=== PATIENT | male | born 1940 | race Caucasian/White ===

== ENCOUNTER 2017-06-18 13:35 | Inpatient (IN) | payer OTHER ==
[2017-06-18 13:52] VITALS: BMI 23.3
--- NOTE | 2017-06-18 16:05 | PDOC ---
History of Present Illness - General Chief Complaint: Shortness of Breath Stated Complaint: PCP SENT Time Seen by Provider: 06/18/17 14:43 - History of Present Illness Initial Comments: 06/18/17 16:02 76 yo M with h/o CLL who presents with productive cough. Patient reports 3 weeks of worsening productive cough with green sputum production. Also endorses Brown. Denies fevers/chills, weight loss, N/V, CP, abdominal pain, diarrhea, constipation, diarrhea urinary complaints, lightheadedness, weakness, vertigo. Serial Chest CT Q [address] showed interval development of RUL infiltrate. Patient advised to come to ED by oncologist Dr. Clements for treatment of infiltrate. Past History - Past Medical History Allergies/Adverse Reactions: Allergies Allergy/AdvReac Type Severity Reaction Status Date / Time allopurinol AdvReac Severe Rash Verified 06/18/17 13:49 Home Medications: Ambulatory Orders Atorvastatin Calcium [Lipitor] 80 mg PO HS 09/11/12 Bimatoprost [Lumigan] 1 drop IO DAILY 06/18/17 Lisinopril/Hydrochlorothiazide [Lisinopril-Hctz 10-12.5 mg Tab] 1 each PO DAILY 06/18/17 Timolol 0.5% [Timoptic 0.5%] 1 drop OD DAILY 06/18/17 Cancer: Yes (CLL) COPD: No HTN: Yes Hypercholesterolemia: Yes - Suicide/Smoking/Psychosocial Hx Smoking Status: No Smoking History: Never smoked Have you smoked in the past 12 months: No Number of Cigarettes Smoked Daily: 0 Information on smoking cessation initiated: No Hx Alcohol Use: No Drug/Substance Use Hx: No Substance Use Type: None Hx Substance Use Treatment: No Review of Systems - Review of Systems Comments:: 06/18/17 16:03 GENERAL/CONSTITUTIONAL: No fever or chills. No weakness. HEAD, EYES, EARS, NOSE AND THROAT: No change in vision. No ear pain or discharge. No sore throat.- CARDIOVASCULAR: No chest pain or shortness of breath RESPIRATORY: + Cough, and SOB. No wheezing, or hemoptysis. GASTROINTESTINAL: No nausea, vomiting, diarrhea or constipation. GENITOURINARY: No dysuria, frequency, or change in urination. MUSCULOSKELETAL: No joint or muscle swelling or pain. No neck or back pain. SKIN: No rash NEUROLOGIC: No headache, vertigo, loss of consciousness, or change in strength/ sensation. ENDOCRINE: No increased thirst. No abnormal weight change HEMATOLOGIC/LYMPHATIC: No anemia, easy bleeding, or history of blood clots. ALLERGIC/IMMUNOLOGIC: No hives or skin allergy. *Physical Exam - Vital Signs Last Vital Signs Temp Pulse Resp BP Pulse Ox 97.6 F 79 18 130/67 97 06/18/17 13:50 06/18/17 13:50 06/18/17 13:50 06/18/17 13:50 06/18/17 13:50 - Physical Exam Comments: 06/18/17 16:03 GENERAL: Awake, alert, and fully oriented, in no acute distress HEAD: No signs of trauma, normocephalic, atraumatic EYES: PERRLA, EOMI, sclera anicteric, conjunctiva clear ENT: Auricles normal inspection, hearing grossly normal, nares patent, oropharynx clear without exudates. Moist mucosa NECK: Normal ROM, supple, no lymphadenopathy, JVD, or masses LUNGS: No distress, speaks full sentences, clear to auscultation bilaterally HEART: Regular rate and rhythm, normal S1 and S2, no murmurs, rubs or gallops, peripheral pulses normal and equal bilaterally. EXTREMITIES : Normal inspection, Normal range of motion, no edema. No clubbing or cyanosis. SKIN: Warm, Dry, normal turgor, no rashes or lesions noted. ED Treatment Course - LABORATORY CBC & Chemistry Diagram: 06/18/17 17:00 06/18/17 17:00 Medical Decision Making - Medical Decision Making 06/18/17 16:50 76 yo M with h/o CLL s/p chemotherapy 3 years ago who presents 3 weeks of worsening productive cough with green sputum production. Also endorses Brown. Denies fevers/chills, N/V, CP, abdominal pain, diarrhea, constipation, diarrhea urinary complaints, lightheadedness, weakness, vertigo. Patient has had multiple antibiotic treatment on ceftriaxone and z pack ( azithromycin ) x 2 within the past 6 weeks. Receives serial Chest CT Q [address] showed interval development of RUL infiltrate with air bronchrograms. There was concern for post obstructive lymphadenopathy, which is ruled out based on recent CT chest. This is concerning for staph pneumonia and possible CAP vs. HCAP. Patient advised to come to ED by oncologist for treatment of infiltrate. Patient currently hemodynamically stable with benign physical exam. Dr. Clements Oncologist ED Course: CBC, CMP, Blood Culture Answering service for Dr. Clements. Spoke to Dr. Valerio and Dr. Clements who recommend admission with ID consult. 06/18/17 17:11 Vanc/Zosyn Will admit to Dr. Valerio Med/Surg 7 west. 06/18/17 17:[address] Stallworth. Obtain sputum culture and will consult in AM. 06/18/17 17:31 WBC: 234.8 ( patient not at risk for leukostasis, WBC <400) 06/18/17 17:43 *DC/Admit/Observation/Transfer Diagnosis at time of Disposition: Pneumonia Qualifiers: Pneumonia type: due to unspecified organism Laterality: right Lung location: upper lobe of lung Qualified Code(s): J18.1 - Lobar pneumonia, unspecified organism - Discharge Dispostion Admit: Yes - Referrals Referrals: STAFF,NOT ON [Primary Care Provider] - - Patient Instructions - Post Discharge Activity
[2017-06-18] MEDS ORDERED: SODIUM CHLORIDE 500 ML IV STA (16:46)
[2017-06-18] MEDS ORDERED: PIPERACILLIN/TAZOB 4.5 GM/100 ML PRE-DOCKED IVPB ONE (17:00)
[2017-06-18 17:19] LABS: MCH 29.7 pg (25.7-33.7); MCHC 32.3 g/dl (32.0-35.9); MEAN CELL VOLUME 91.8 fl (80-96); MEAN PLT VOLUME 8.8 fl (7.5-11.1); PLATELET COUNT 206 K/MM3 (134-434); RDW 15.5 % (11.9-15.9)
[2017-06-18] MEDS ORDERED: PIPERACILLIN/TAZOB 4.5 GM 4.5 GM/100 ML BAG IVPB ONE (17:24)
[2017-06-18 17:29] LABS: WHITE BLOOD COUNT 234.8 K/mm3 (4.0-10.0)
[2017-06-18 17:56] LABS: ALBUMIN 4.4 g/dl (3.4-5.0); ANION GAP 7 (8-16); BILIRUBIN,TOTAL 0.6 mg/dL (0.2-1.0); CALCIUM 9.1 mg/dL (8.5-10.1); CO2 28 mmol/L (21-32); CREATININE 1.3 mg/dL (0.7-1.3); GLUCOSE,RANDOM 92 mg/dL (74-106); SGOT/AST 20 U/L (15-37); SGPT/ALT 32 U/L (12-78); TOT PROT 7.4 g/dl (6.4-8.2)
[2017-06-18 17:57] LABS: ALK PHOS 77 U/L (45-117)
[2017-06-18] MEDS ORDERED: VANCOMYCIN 2,000 MG in DEXTROSE 5%-WATER - 500 ML IVPB ONE (18:30)
[2017-06-18] MEDS ORDERED: ACETAMINOPHEN 325 MG TABLET (FP) PO PRN (18:34)
[2017-06-18] MEDS ORDERED: VANCOMYCIN 1,000 MG in DEXTROSE 5%-WATER - 250 ML IVPB ONE (18:37)
--- NOTE | 2017-06-18 18:41 | HP ---
CHIEF COMPLAINT: Cough with phlegm and chills PCP: Dr. Anthony (In [facility]) Oncologist: Dr. Clements HISTORY OF PRESENT ILLNESS: Patient is a 76 year old male with a PMHx of CLL, HTN, HLD who was sent over by his oncologist due to failed outpatient therapy for pneumonia. Patient states three weeks he started having a productive cough with green sputum associated with fever and chills. Patient was initially diagnosed with influenza and was given Tamiflu and an anti-histamine without improvement. Patient then reported last week he had continuous cough with green phlegm associated with shortness of breath when going up a hill but relieved with rest. He went to his PCP on Thursday (06/13/17) who took a chest x-ray which revealed a consolidation and was given a Z-pack for which he completed yesterday. Today, patient had a CT ordered by his oncologist which revealed a worsening consolidation and recommended that he goes to the ED for further work up. Patient denies any sick contacts or any recent hospitalization within the last 90 days. Patient does report receiving his flu shot this year. Patient otherwisem denies abdominal pain, dysuria, hematuria, chest pain, palpitations, vision changes, numbness, weakness, acute vision changes, rashes, diarrhea, constipation, increasing fatigue or malaise. ER course was notable for: (1) Chest X-ray revealing RUL consolidation (2) Zosyn and vancomycin given (3) Bolus of IV NS Recent Travel: Denies PAST MEDICAL HISTORY: CLL (diagnosed in 2010 with 6 sessions of chemotherapy completed January 2013), HTN, HLD PAST SURGICAL HISTORY: Denies Social History: Smoking: Debues Alcohol: Beer occasionally Drugs: Denies Family History: Non-contributory Allergies: Allopurinol Adverse Reaction (Severe, Verified 06/18/17 13:49) Rash FULL BODY MACULAR/PAPULAR HOME MEDICATIONS: Home Medications Medication Instructions Recorded Atorvastatin Calcium [Lipitor] 80 mg PO HS 09/11/12 Bimatoprost [Lumigan] 1 drop IO DAILY 06/18/17 Lisinopril/Hydrochlorothiazide 1 each PO DAILY 06/18/17 [Lisinopril-Hctz 10-12.5 mg Tab] Timolol 0.5% [Timoptic 0.5%] 1 drop OD DAILY 06/18/17 REVIEW OF SYSTEMS CONSTITUTIONAL: fever, chills Absent: diaphoresis, generalized weakness, malaise, loss of appetite, weight change HEENT: Absent: rhinorrhea, nasal congestion, throat pain, throat swelling, difficulty swallowing, mouth swelling, ear pain, eye pain, visual changes CARDIOVASCULAR: Absent: chest pain, syncope, palpitations, irregular heart rate, lightheadedness , peripheral edema RESPIRATORY: cough, shortness of breath, dyspnea with exertion Absent: orthopnea, wheezing, stridor, hemoptysis GASTROINTESTINAL: Absent: abdominal pain, abdominal distension, nausea, vomiting, diarrhea, constipation, melena, hematochezia GENITOURINARY: Absent: dysuria, frequency, urgency, hesitancy, hematuria, flank pain, genital pain MUSCULOSKELETAL: Absent: myalgia, arthralgia, joint swelling, back pain, neck pain SKIN: Absent: rash, itching, pallor HEMATOLOGIC/IMMUNOLOGIC: Absent: easy bleeding, easy bruising, lymphadenopathy, frequent infections ENDOCRINE: Absent: unexplained weight gain, unexplained weight loss, heat intolerance, cold intolerance NEUROLOGIC: Absent: headache, focal weakness or paresthesias, dizziness, unsteady gait, seizure, mental status changes, bladder or bowel incontinence PSYCHIATRIC: Absent: anxiety, depression, suicidal or homicidal ideation, hallucinations. PHYSICAL EXAMINATION Vital Signs - 24 hr 06/18/17 13:50 Temperature 97.6 F Pulse Rate 79 Respiratory 18 Rate Blood Pressure 130/67 O2 Sat by Pulse 97 Oximetry (%) GENERAL: Awake, alert, and fully oriented, in no acute distress. EYES: Pupils equal, round and reactive to light EARS, NOSE, THROAT: Oropharynx clear without exudates. Moist mucous membranes. LUNGS: Breath sounds equal, clear to auscultation bilaterally. No wheezes, and no crackles. No accessory muscle use. HEART: Regular rate and rhythm, normal S1 and S2 without murmur, rub or gallop. ABDOMEN: Soft, nontender, not distended, normoactive bowel sounds, no guarding, no rebound, no masses. No hepatomegaly or splenomegaly. EXTREMITIES: No peripheral edema of bilateral LE. Non-tender Right axillary lymph nodes NEUROLOGICAL: Cranial nerves II-XII intact. Normal speech. No facial droop Laboratory Results - last 24 hr 06/18/17 06/18/17 17:00 17:00 WBC 234.8 H* RBC 4.44 Hgb 13.2 D Hct 40.8 MCV 91.8 MCH 29.7 MCHC 32.3 RDW 15.5 Plt Count 206 D MPV 8.8 Neutrophils % No Result Required. Lymphocytes % No Result Required. Sodium 136 Potassium 4.2 Chloride 101 Carbon Dioxide 28 Anion Gap 7 L BUN 20 H Creatinine 1.3 Creat Clearance w eGFR 53.53 Random Glucose 92 Calcium 9.1 Total Bilirubin 0.6 AST 20 D ALT 32 Alkaline Phosphatase 77 D Total Protein 7.4 D Albumin 4.4 Chest X-Ray (06/18/17): Right Upper Lobe consolidation ASSESSMENT/PLAN: Patient is a 76 year old male who was sent by his oncologist for failed outpatient pneumonia therapy with Ceftriaxone and Azithromycin. Patient admitted for further monitoring and management. Right Upper Lobe Community Acquired Pneumonia -CURB65 of 1 however, patient has CLL and is immunocompromised with failed outpatient therapy and symptoms of fever, chills, night sweats. -IV antibiotics with Zosyn 3.375mg IVPB Q8H and Vancomycin 1000mg IVPB -Mycoplasma pneumoniae IgM, sputum cultures and urine antigens for Legionella ordered -Quanteferon gold ordered as patient is immunocompromised and CT revealing possible cavitation within the consolidation -Continue IV fluids with Normal Saline @83mls/hr until the morning -Follow up on blood cultures -Lactic Acid pending -ID consult placed. Spoke to Dr. Delgado and discussed case. CLL -Last treated with chemotherapy in 2012 -In March patient's WBC in the 180,000's but this month in the 220,000's. Today patient's WBC >234,000 -Chest/Abdomen/Pelvis CT done which only revealed increasing spleen size with no changes otherwise -Followed by heme/onco and consult placed -Continue to monitor CBC HTN-Controlled -Takes HCTZ/Lisinopril at home but will only resume Lisinopril -Tried calling pharmacy who report he has not filled since 2014. Patient receives medication from [facility] pharmacy. Will confirm in the morning -Continue to monitor BP HLD -Continue Lipitor 80mg daily F/E/N -On IV NS @83mls/hr -Electrolytes wnl -Sodium controlled diet Prophylaxis -High Risk. Heparin 5000 units SQ Q8H for DVT -No GI required Disposition -Full code -Will need IV antibiotics. Awaiting ID and Oncology consult Visit type - Emergency Visit Emergency Visit: Yes ED Registration Date: 06/18/17 Care time: The patient presented to the Emergency Department on the above date and was hospitalized for further evaluation of their emergent condition. - New Patient This patient is new to me today: Yes Date on this admission: 06/18/17 - Critical Care Critical Care patient: No
[2017-06-18] MEDS ORDERED: SODIUM CHLORIDE 1,000 ML IV SCH (18:45)
--- NOTE | 2017-06-18 18:46 | PN ---
Teaching Attending Note Name of Resident: Shahana Cole ATTENDING PHYSICIAN STATEMENT I saw and evaluated the patient. I reviewed the resident's note and discussed the case with the resident. I agree with the resident's findings and plan as documented. SUBJECTIVE: CC: cough , fever , chills and sputum production HPI: Mr. Kline is a pleasant gentleman with h/o CLL , HTN, and HLP who presented with fever , chills, cough and sputum production. around thankx giving he started with these sx. He was prescribed a 5 day course of tamiflu and anti-histamine , with no improvement . a week ago, he wa prescribed azithro and possibly one dose of ceftriaxone. No improvement in sx . he saw Dr. Clements in office yesterday and a CT of C/A/P was done to show a RUL infiltrate. he denies recent trave, hospitalization, diarrhea , dysuria , or rash. he denies any change in vision, weakness, numbness, or tingling. OBJECTIVE: NAd, AAox3 . MMM, no facial droop. EOMI. round equal pupils , reactive to light . CV: RRR, NO MRG Lungs: CTAB Abd: soft, NT, ND , NL BS . Liver and spleen are not palpated or percussed . ext: no edema . Lymphatic: No LAP in groins, neck, L axilla . has 3 n on tender, LAP in R axilla biggest measures around 2cm in diameter. Neuro : EOMI. round equal pupils , reactive to light . no facial droop. uvula and tongue at midline.Nl facial sensation . EOMI. strength 5/5 in upper and lower extremities proximally and distally . sensatio to light touch NL. reflexes 1+ knee jerk b/l . 2+ biceps b/l ASSESSMENT AND PLAN: Mr. Kline is a pleasant gentleman with h/o CLL , HTN, and HLP who presented with fever , chills, cough and sputum production. He was found ot have RUL PNA 1- RUL CAP : failed azithro and ceftriaxone treatment as out pt . lactic pending -due to his immuno-compromised status will treat with zosyn. Received vanco in ER. there might be a cavitation in the consolidation, so will cont vanco pending ID consult - check qunterferfaith che - chechastity legiionella/pneumococcal Ag and mycoplasma Abs. - follow blood c x - IVF till Am . - follow lactic acid ( still pending ) - follow BMP ( pending ) 2- H/o CLL: treated with chemo in 2012. WBC has been slowly increasing. on CT pelvis /abd : slight increase in spleen size, but stable abd and retroperitoneal LAP. on exam has R axillary LAP - heme to follow 3- h/o HTN: confirm meds and willocnt lisinopril only 4- HLP : cont statin DVT PX
[2017-06-18 19:12] LABS: REACTIVE LYMPHOCYTES 10 % (0-80); TOTAL CELLS COUNTED 100
[2017-06-18 19:13] LABS: ANISOCYTOSIS 1+; SMUDGE CELLS FEW
[2017-06-18 19:14] LABS: PLATELET ESTIMATE ADEQUATE
--- NOTE | 2017-06-18 22:37 | CONSULT ---
Consult - text type - Consultation Consultation Note: Patient is a 76 year old male with a PMHx of CLL, HTN, HLD who was sent over due to abnormal ct chest /o pneumonia. Patient states three weeks he started having a productive cough with green sputum associated with fever and chills. Patient was initially diagnosed with influenza and was given Tamiflu and an anti -histamine without improvement. Patient then reported last week he had continuous cough with green phlegm associated with shortness of breath when going up a hill but relieved with rest. He went to his PCP on Thursday () who took a chest x-ray which revealed a consolidation and was given a Z- pack for which he completed yesterday. reports that he is improved clinically --less cough. no evrs/chills but comes in due to concerning ct indings Patient otherwisem denies abdominal pain, dysuria, hematuria, chest pain, palpitations, vision changes, numbness, weakness, acute vision changes, rashes, diarrhea, constipation, increasing fatigue or malaise. PAST MEDICAL HISTORY: CLL (diagnosed in 2010 with 6 sessions of chemotherapy completed January 2013), HTN, HLD PAST SURGICAL HISTORY: Denies Social History: Smoking: Debues Alcohol: Beer occasionally Drugs: Denies Family History: Non-contributory Allergies: Allopurinol Adverse Reaction (Severe, Verified 06/18/17 13:49) Rash FULL BODY MACULAR/PAPULAR HOME MEDICATIONS: Home Medications Medication Instructions Recorded Atorvastatin Calcium [Lipitor] 80 mg PO HS 09/11/12 Bimatoprost [Lumigan] 1 drop IO DAILY 06/18/17 Lisinopril/Hydrochlorothiazide 1 each PO DAILY 06/18/17 [Lisinopril-Hctz 10-12.5 mg Tab] Timolol 0.5% [Timoptic 0.5%] 1 drop OD DAILY 06/18/17 PHYSICAL EXAMINATION Last Vital Signs Temp Pulse Resp BP Pulse Ox 97.6 F 79 18 130/67 97 06/18/17 13:50 06/18/17 13:50 06/18/17 13:50 06/18/17 13:50 06/18/17 13:50 Cor: RSR, No murmurs, No gallops Lungs: Clear to P&A Abd: Soft, Normal bowel sounds, No organomegaly Ext:No significant edema Abnormal Lab Results 06/18/17 06/18/17 17:00 17:00 WBC 234.8 H* Neutrophils % (Manual) 4.0 L Lymphocytes % (Manual) 86.0 H* Monocytes % (Manual) 2 L Anion Gap 7 L BUN 20 H Active Medications Acetaminophen (Tylenol -) 650 mg PO Q4H PRN PRN Reason: FEVER OR PAIN Atorvastatin Calcium (Lipitor -) 80 mg PO HS [facility] Last Admin: 06/18/17 22:51 Dose: Not Given Heparin Sodium (Porcine) (Heparin -) 5,000 unit SQ TID [facility] Last Admin: 06/18/17 22:45 Dose: 5,000 unit Sodium Chloride (Normal Saline -) 1,000 mls @ 83 mls/hr IV ASDIR [facility] Stop: 06/19/17 08:00 Last Admin: 06/18/17 20:00 Dose: 83 mls/hr Piperacillin Sod/Tazobactam (Sod 3.375 gm/ Dextrose) 50 mls @ 100 mls/hr IVPB ONCE ONE Stop: 06/19/17 02:29 Lisinopril (Prinivil) 5 mg PO DAILY [facility] Piperacillin/Tazobactam/Dextrose (Zosyn 3.375gm Ivpb (Premix)) 3.375 gm IVPB Q8H-IV [facility] A/P 76 y/o patient with CLL s/p BR in 2012, recent ew weeks h/o chills/cough/phlegm /. Received z andrea x 2 courses.Now clinically improved but ct scan shows rul iniltrate with air bronchograms ? lag in radiological improvement recheck cultures ID consult vanco/zosyn/hydration while awaiting cx IgG was 600 recently will follow
[2017-06-18] MEDS: HEPARIN NA (PORCINE) 5,000 UNITS/ML 1ML VIAL SQ SCH (22:45)
[2017-06-18] MEDS: ATORVASTATIN CA 80 MG TABLET (FP) PO SCH (22:51)
[2017-06-19] MEDS ORDERED: PIPERACIL/TAZOB 3.375 GM 3.375 GM/50 ML PREMIX IVPB SCH (02:00)
[2017-06-19] MEDS ORDERED: PIPERACILLIN/TAZOB 3.375 GM 3.375 GM in DEXTROSE 5%-WATER - 50 ML IVPB ONE ×2 (02:00→09:00)
[2017-06-19] MEDS: HEPARIN NA (PORCINE) 5,000 UNITS/ML 1ML VIAL SQ SCH ×3 (06:48→22:13)
[2017-06-19] MEDS: ATORVASTATIN CA 80 MG TABLET (FP) PO SCH (06:52)
[2017-06-19 08:11] LABS: MCH 29.5 pg (25.7-33.7); MCHC 31.7 g/dl (32.0-35.9); MEAN CELL VOLUME 93.1 fl (80-96); MEAN PLT VOLUME 8.6 fl (7.5-11.1); PLATELET COUNT 175 K/MM3 (134-434); RDW 16.5 % (11.9-15.9)
[2017-06-19 08:20] LABS: ANION GAP 9 (8-16); CALCIUM 8.1 mg/dL (8.5-10.1); CO2 27 mmol/L (21-32); CREATININE 1.2 mg/dL (0.7-1.3); GLUCOSE,RANDOM 91 mg/dL (74-106)
[2017-06-19 08:23] LABS: WHITE BLOOD COUNT 206.8 K/mm3 (4.0-10.0)
--- NOTE | 2017-06-19 08:29 | PN ---
Progress Note, Physician Chief Complaint: ID Mr Burrows is a 76 year old [facility] male with history of CLL since 2010 S/P 6 cycles of Rituximab in 2010 and did well. For 3 weeks has bee having persistant productive couph with known RUL infiltrate found at his PMD. Treated with 2 courses of Azithromcyn without improvement. Denies fevers but recent chills and has daily night sweats. Appetite normal CLL appears to have progressed recently as WBC over 200K. NO travel Nonsmoker. Raised [place] farm for the first 20 years of his life in [place]. 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 NO pets or hobbies No one else at home ill. TB status unknown - Current Medication List Current Medications: Active Medications Acetaminophen (Tylenol -) 650 mg PO Q4H PRN PRN Reason: FEVER OR PAIN Atorvastatin Calcium (Lipitor -) 80 mg PO HS [facility] Last Admin: 06/19/17 06:52 Dose: 80 mg Heparin Sodium (Porcine) (Heparin -) 5,000 unit SQ TID [facility] Last Admin: 06/19/17 06:48 Dose: 5,000 unit Vancomycin HCl 1,000 mg/ (Dextrose) 250 mls @ 166.667 mls/hr IVPB ONCE ONE PRN Reason: Protocol Stop: 06/19/17 11:29 Piperacillin Sod/Tazobactam (Sod 3.375 gm/ Dextrose) 50 mls @ 100 mls/hr IVPB ONCE ONE Stop: 06/19/17 09:29 Lisinopril (Prinivil) 5 mg PO DAILY [facility] Piperacillin/Tazobactam/Dextrose (Zosyn 3.375gm Ivpb (Premix)) 3.375 gm IVPB Q8H-IV [facility] - Objective Vital Signs: Vital Signs Temperature 98 F 06/19/17 06:00 Pulse Rate 68 06/19/17 06:00 Respiratory Rate 20 06/19/17 06:00 Blood Pressure 115/61 06/19/17 06:00 O2 Sat by Pulse Oximetry (%) 96 06/18/17 19:45 Constitutional: Yes: No Distress Cardiovascular: Yes: Regular Rate and Rhythm, S1, S2 Respiratory: Yes: WNL, Regular, CTA Bilaterally Problem List - Problems (1) Chronic lymphocytic leukemia (CLL), B-cell Code(s): C91.10 - CHRONIC LYMPHOCYTIC LEUK OF B-CELL TYPE NOT ACHIEVE REMIS (2) Pneumonia Code(s): J18.9 - PNEUMONIA, UNSPECIFIED ORGANISM Qualifiers: Pneumonia type: due to unspecified organism Laterality: right Lung location: upper lobe of lung Qualified Code(s): J18.1 - Lobar pneumonia, unspecified organism Assessment/Plan Microbiology Laboratory Tests 06/18/17 06/18/17 06/19/17 17:00 17:00 06:30 WBC 206.8 H* Hgb 11.6 L D Hct 36.7 Plt Count 175 Neutrophils % (Manual) 4.0 L Lymphocytes % (Manual) 86.0 H* Monocytes % (Manual) 2 L BUN Creatinine AST 20 D ALT 32 06/19/17 06:30 WBC Hgb Hct Plt Count Neutrophils % (Manual) Lymphocytes % (Manual) Monocytes % (Manual) BUN 18 Creatinine 1.2 AST ALT Assessment Recurrent CLL with ? B symptoms night sweats possibly related to transformation of CLL. He does have a RUL infiltrate Is this a chronic pneumonia ?? Being from [place] with night sweats and couph for 3-4 weeks must consider Tuberculosis. Chest xray infiltrate really nonspecific. Plan For now would cover with good Strep pneumo coverage with Ceftriaxone 2 grs daily Isolate him to collect sputums AFB with TB probe Sputum c/s Quant gold interferon LGA Influenza screen Sandy HENRIQUEZ
--- NOTE | 2017-06-19 08:42 | PN ---
Physical Exam: SUBJECTIVE: Patient seen and examined - No major overnight events. Pt in isolation room for possible TB infection. Pt endorsing mild nonproductive cough. Slept well, good energy. Denies any GIL, fevers/chills, CP, SOB, N/V, diarrhea, dysuria, rashes, new neuro symptoms. Endorses feeling much better since yesterday OBJECTIVE: Vital Signs Intake & Output 06/16/17 06/17/17 06/18/17 06/19/17 23:59 23:59 23:59 23:59 Weight 71.668 kg Period Temp Pulse Resp BP Sys/Mccracken Pulse Ox Last 24 Hr 97.6 F-98.5 F 68-79 18-20 107-130/58-67 96-97 GENERAL: A&Ox3, in no acute distress. HEAD: NCAT EYES: PERRL, extraocular movements intact, sclera anicteric, conjunctiva clear. No ptosis. ENT: Ears normal, nares patent, oropharynx clear without exudates, moist mucous membranes. NECK: Trachea midline, full range of motion, supple. LUNGS: CTABL, no wheezes, no crackles, no accessory muscle use. HEART: RRR, S1, S2 without murmur, rub or gallop. ABDOMEN: Soft, nontender, nondistended, normoactive bowel sounds, no guarding, no rebound, no hepatosplenomegaly, no masses. Upper EXTREMITIES: 3 non-tender, non-fixed, rubbery LN, largest ~2cm in R axilla. 2+ pulses, warm, well-perfused, no edema. Lower EXTREMITIES: 2+ DP,PT pulses, warm, well-perfused, no edema. NEUROLOGICAL: Cranial nerves II through XII grossly intact. 5/5 strength in all extremities. Sensation to light touch preserved diffusely. Normal speech, gait not observed. PSYCH: Normal mood, normal affect. Very pleasant. SKIN: Warm, dry, normal turgor, no rashes or lesions noted Laboratory Results - last 24 hr CBC, BMP 06/19/17 06:30 06/19/17 06:30 06/18/17 06/18/17 06/18/17 17:00 17:00 17:00 WBC 234.8 H* RBC 4.44 Hgb 13.2 D Hct 40.8 MCV 91.8 MCH 29.7 MCHC 32.3 RDW 15.5 Plt Count 206 D MPV 8.8 Total Counted 100 Neutrophils % No Result Required. Neutrophils % (Manual) 4.0 L Lymphocytes % No Result Required. Lymphocytes % (Manual) 86.0 H* Monocytes % (Manual) 2 L Differential Comment Man diff performed Smudge Cells Few Platelet Estimate Adequate Platelet Comment Anisocytosis 1+ Sodium 136 Potassium 4.2 Chloride 101 Carbon Dioxide 28 Anion Gap 7 L BUN 20 H Creatinine 1.3 Creat Clearance w eGFR 53.53 Random Glucose 92 Calcium 9.1 Total Bilirubin 0.6 AST 20 D ALT 32 Alkaline Phosphatase 77 D LD Total 228 D Total Protein 7.4 D Albumin 4.4 06/19/17 06/19/17 06:30 06:30 WBC 206.8 H* RBC 3.94 L Hgb 11.6 L D Hct 36.7 MCV 93.1 MCH 29.5 MCHC 31.7 L RDW 16.5 H Plt Count 175 MPV 8.6 Total Counted Neutrophils % Neutrophils % (Manual) Lymphocytes % Lymphocytes % (Manual) Monocytes % (Manual) Differential Comment Smudge Cells Platelet Estimate Platelet Comment Anisocytosis Sodium 142 Potassium 3.5 Chloride 106 Carbon Dioxide 27 Anion Gap 9 BUN 18 Creatinine 1.2 Creat Clearance w eGFR Random Glucose 91 Calcium 8.1 L Total Bilirubin AST ALT Alkaline Phosphatase LD Total Total Protein Albumin Active Medications Generic Name Dose Route Start Last Admin Trade Name Freq PRN Reason Stop Dose Admin Acetaminophen 650 mg 06/18/17 18:34 Tylenol - PO Q4H PRN FEVER OR PAIN Atorvastatin Calcium 80 mg 06/18/17 22:00 06/19/17 06:52 Lipitor - PO 80 mg HS BINDU Administration Heparin Sodium (Porcine) 5,000 unit 06/18/17 22:00 06/19/17 06:48 Heparin - SQ 5,000 unit TID BINDU Administration Vancomycin HCl 1,000 mg/ 250 mls @ 166.667 mls/hr 06/19/17 10:00 Dextrose IVPB 06/19/17 11:29 ONCE ONE Protocol Piperacillin Sod/Tazobactam 50 mls @ 100 mls/hr 06/19/17 09:00 Sod 3.375 gm/ Dextrose IVPB 06/19/17 09:29 ONCE ONE Lisinopril 5 mg 06/19/17 10:00 Prinivil PO DAILY BINDU Piperacillin/Tazobactam/Dextrose 3.375 gm 06/19/17 02:00 Zosyn 3.375gm Ivpb (Premix) IVPB Q8H-IV BINDU Microbiology 06/18/17 17:00 Blood - Peripheral Venous Blood Culture - Preliminary NO GROWTH OBTAINED AFTER 24 HOURS, INCUBATION TO CONTINUE FOR 4 DAYS. 06/18/17 17:00 Blood - Peripheral Venous Blood Culture - Preliminary NO GROWTH OBTAINED AFTER 24 HOURS, INCUBATION TO CONTINUE FOR 4 DAYS. 06/19/17 07:25 Sputum - Expectorated Gram Stain - Final 06/19/17 11:57 Serum Cryptococcal Antigen - Preliminary CXR 06/18 - RUL consolidation CT Chest 06/18 - In comparison to a previous CT exam of 01/02/2017 interval development of a right upper lobe infiltrate is noted. The remainder of the exam appears unchanged. Stable bilateral axillary lymphadenopathy is noted. There is partial imaging of bilateral supraclavicular lymphadenopathy without obvious interval change. Stable slightly prominent bilateral hilar lymph nodes are seen. ASSESSMENT/PLAN: 86 yo man w hx of CLL (6 cycles of rituximab in 2010), HTN , HLD who presented to ED at behest of his oncologist due to CT scan with RUL infiltrate in setting 3 weeks of productive cough. Pt much improved today this morning, complaining only of mild cough. #RUL PNA - RUL infiltrate on CT chest - F/u AFB sputum cultures, gram stains - f/u quant gold - f/u cryptococcal ag, legionella, mycoplasma serology - Negative pressure isolation room while ruling out for TB - Cetriaxone for Strep pneumo coverage - Trend fever curve, infectious symptoms - Tylenol 650 mg q4h for fever/pain #CLL - WBC 234K on presentation-> 207K today, currently not on tx. R axillary lymphadenopathy - Heme/onc consulted. Recs appreciated. - F/u Ig panel - Trend CBC #HTN - 100s to 130s systolic today. Home dose of lisinopril/HCTZ confirmed - Lisinopril 5mg daily. Monitor for hypotension #HLD - Cont home statin. Pt requests statin in AM, order adjusted FEN: F: PO hydration E: Daily BMPs N: Cardiac diet #PPX Heparin SubQ Plan discussed with attending, Dr. Najma Maravilla, PGY1 Visit type - Emergency Visit Emergency Visit: Yes ED Registration Date: 06/18/17 Care time: The patient presented to the Emergency Department on the above date and was hospitalized for further evaluation of their emergent condition. - New Patient This patient is new to me today: Yes Date on this admission: 06/19/17 - Critical Care Critical Care patient: No
[2017-06-19 08:49] LABS: URINE APPEARANCE CLEAR; URINE BILIRUBIN NEGATIVE (NEGATIVE); URINE BLOOD NEGATIVE (NEGATIVE); URINE COLOR STRAW; URINE GLUCOSE (UA) NEGATIVE (NEGATIVE); URINE KETONE NEGATIVE (NEGATIVE); URINE LEUK ESTERASE NEGATIVE (NEGATIVE); URINE NITRITE NEGATIVE (NEGATIVE); URINE PROTEIN NEGATIVE (NEGATIVE); URINE UROBILINOGEN NEGATIVE mg/dL (0.2-1.0)
[2017-06-19 08:58] LABS: C-REACTIVE PROTEIN 0.5 MG/DL (0.00-0.3)
[2017-06-19] MEDS ORDERED: PIPERACIL/TAZOB 3.375 GM 3.375 GM/50 ML PREMIX IVPB ONE (10:00)
[2017-06-19] MEDS ORDERED: VANCOMYCIN 1,000 MG in DEXTROSE 5%-WATER - 250 ML IVPB ONE (10:00)
[2017-06-19] MEDS ORDERED: PT OWN MED DRAWER 7, Y5N ONE (10:08)
[2017-06-19] MEDS: CEFTRIAXONE 2 GM in DEXTROSE 5%-WATER - 100 ML IVPB SCH (10:14)
[2017-06-19 10:41] LABS: URINE LEUK ESTERASE Negative (NEGATIVE)
[2017-06-19] MEDS: LISINOPRIL 5 MG TABLET (FP) PO SCH (10:55)
[2017-06-19 12:13] LABS: CPK 68 IU/L (39-308); TROPONIN I < 0.02 ng/ml (0.00-0.05)
--- NOTE | 2017-06-19 13:04 | PN ---
Progress Note (short form) - Note Progress Note: patient seen and examined Denies any complaints AFVSS Cor: RSR, No murmurs, No gallops Lungs: Clear to P&A Abd: Soft, Normal bowel sounds, No organomegaly Ext:No significant edema Abnormal Lab Results 06/18/17 06/18/17 06/19/17 17:00 17:00 06:30 WBC 234.8 H* 206.8 H* RBC 3.94 L Hgb 11.6 L D MCHC 31.7 L RDW 16.5 H Neutrophils % (Manual) 4.0 L Lymphocytes % (Manual) 86.0 H* Monocytes % (Manual) 2 L Anion Gap 7 L BUN 20 H Calcium C-Reactive Protein 06/19/17 06:30 WBC RBC Hgb MCHC RDW Neutrophils % (Manual) Lymphocytes % (Manual) Monocytes % (Manual) Anion Gap BUN Calcium 8.1 L C-Reactive Protein 0.5 H Active Medications Generic Name Dose Route Start Last Admin Trade Name Freq PRN Reason Stop Dose Admin Acetaminophen 650 mg 06/18/17 18:34 Tylenol - PO Q4H PRN FEVER OR PAIN Atorvastatin Calcium 80 mg 06/20/17 22:00 Lipitor - PO HS BINDU Heparin Sodium (Porcine) 5,000 unit 06/18/17 22:00 06/19/17 06:48 Heparin - SQ 5,000 unit TID BINDU Administration Ceftriaxone Sodium 2 gm/ 100 mls @ 200 mls/hr 06/19/17 10:00 06/19/17 10:14 Dextrose IVPB 200 mls/hr DAILY BINDU Administration Lisinopril 5 mg 06/19/17 10:00 06/19/17 10:55 Prinivil PO Not Given DAILY BINDU A/P 76 y/o patient with CLL Here for RUL pneumonia Getting ID w/u monitor cbc f/u immunoglobulin levels
[2017-06-19] MEDS ORDERED: VANCOMYCIN 2,000 MG in DEXTROSE 5%-WATER - 500 ML IVPB ONE (16:46)
--- NOTE | 2017-06-19 19:30 | PN ---
Teaching Attending Note Name of Resident: Nickolas Maravilla ATTENDING PHYSICIAN STATEMENT I saw and evaluated the patient. I reviewed the resident's note and discussed the case with the resident. I agree with the resident's findings and plan as documented. SUBJECTIVE: No fever or chills. feels better. OBJECTIVE: NAD CV: RRR, NO MRG Lungs: CTAB ext: no edema . Lymphatic: has 3 non tender, LAP in R axilla biggest measures around 2cm in diameter. ASSESSMENT AND PLAN: Mr. Kline is a pleasant gentleman with h/o CLL , HTN, and HLP who presented with fever , chills, cough and sputum production. He was found ot have RUL PNA 1- RUL CAP : - ceftriaxone - follow blood and sputum cx - follow serology - QTF gold pending - dc IVF 2- H/o CLL: treated with chemo in 2012. on CT pelvis /abd : slight increase in spleen size, but stable abd and retroperitoneal LAP. on exam has R axillary LAP - f/u with heme 3- h/o HTN: cont lisinopril 4- HLP : cont statin DVT PX
[2017-06-20] MEDS: HEPARIN NA (PORCINE) 5,000 UNITS/ML 1ML VIAL SQ SCH ×3 (06:35→21:48)
[2017-06-20 08:10] LABS: IGG IMMUNOGLOBULIN 633 mg/dL (700-1600); IGM IMMUNOGLOBULIN 44 mg/dL (15-143)
[2017-06-20] MEDS ORDERED: PT OWN MED DRAWER 7, Y5N ONE (08:59)
--- NOTE | 2017-06-20 09:05 | PN ---
Progress Note, Physician Chief Complaint: ID Relatively little by way of symptoms today Couph less Sputum says less NO fevers Denies night sweats Ceftriaxone day 2 antibiotics - Current Medication List Current Medications: Active Medications Acetaminophen (Tylenol -) 650 mg PO Q4H PRN PRN Reason: FEVER OR PAIN Atorvastatin Calcium (Lipitor -) 80 mg PO HS BINDU Heparin Sodium (Porcine) (Heparin -) 5,000 unit SQ TID [facility] Last Admin: 06/20/17 06:35 Dose: 5,000 unit Ceftriaxone Sodium 2 gm/ (Dextrose) 100 mls @ 200 mls/hr IVPB DAILY [facility] Last Admin: 06/19/17 10:14 Dose: 200 mls/hr Lisinopril (Prinivil) 5 mg PO DAILY [facility] Last Admin: 06/19/17 10:55 Dose: Not Given - Objective Vital Signs: Vital Signs Temperature 97.9 F 06/20/17 00:00 Pulse Rate 61 06/20/17 00:00 Respiratory Rate 20 06/20/17 00:00 Blood Pressure 129/70 06/20/17 00:00 O2 Sat by Pulse Oximetry (%) 98 06/19/17 21:00 Constitutional: Yes: No Distress HENT: Yes: WNL, Atraumatic Neck: Yes: WNL, Supple Cardiovascular: Yes: Regular Rate and Rhythm, S1, S2 Respiratory: Yes: WNL, Regular, CTA Bilaterally. No: Rales, Rhonchi Gastrointestinal: Yes: WNL, Normal Bowel Sounds, Soft. No: Hepatomegaly, Splenomegaly, Tenderness, Tenderness, Epigastrium Extremities: No: Cold, Cool, Cyanosis Edema: No Labs: CBC, BMP 06/19/17 06:30 06/19/17 06:30 Problem List - Problems (1) Chronic lymphocytic leukemia (CLL), B-cell Code(s): C91.10 - CHRONIC LYMPHOCYTIC LEUK OF B-CELL TYPE NOT ACHIEVE REMIS (2) Pneumonia Code(s): J18.9 - PNEUMONIA, UNSPECIFIED ORGANISM Qualifiers: Pneumonia type: due to unspecified organism Laterality: right Lung location: upper lobe of lung Qualified Code(s): J18.1 - Lobar pneumonia, unspecified organism Assessment/Plan Microbiology 06/19/17 07:25 Sputum - Expectorated Gram Stain - Final 06/19/17 11:57 Serum Cryptococcal Antigen - Preliminary 06/18/17 17:00 Blood - Peripheral Venous Blood Culture - Preliminary NO GROWTH OBTAINED AFTER 24 HOURS, INCUBATION TO CONTINUE FOR 4 DAYS. 06/18/17 17:00 Blood - Peripheral Venous Blood Culture - Preliminary NO GROWTH OBTAINED AFTER 24 HOURS, INCUBATION TO CONTINUE FOR 4 DAYS. Laboratory Tests 06/18/17 06/19/17 06/19/17 11:57 06:30 06:30 WBC 206.8 H* RBC 3.94 L Plt Count 175 BUN 18 Creatinine 1.2 IgG 633 L TB Test (QFT) 06/19/17 06:30 WBC RBC Plt Count BUN Creatinine IgG TB Test (QFT) Pending Assessment CLL progressive post Rituximab 2012 Night sweats recent ? 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
[2017-06-20] MEDS: CEFTRIAXONE 2 GM in DEXTROSE 5%-WATER - 100 ML IVPB SCH (09:26)
[2017-06-20] MEDS: LISINOPRIL 5 MG TABLET (FP) PO SCH (09:26)
--- NOTE | 2017-06-20 09:32 | PDOC ---
Attending Attestation - Resident Resident Name: Yamil Davidson - ED Attending Attestation I have performed the following: I have examined & evaluated the patient, The case was reviewed & discussed with the resident, I agree w/resident's findings & plan, Exceptions are as noted - HPI HPI: 06/18/17 76-year-old female with a history of CLL here today for concerns for possible resistant pneumonia. Patient states he has been treated twice in the last month for an outpatient pneumonia has also been admitted for ceftriaxone and azithromycin recently been given a second round of azithromycin all of which has not worked. Patient has been followed by Dr. Clements who had performed a recent CAT scan showing a persistent right upper lobe infiltrate. Patient states he has also been given CT with contrast in the past for evaluation of this. States that he has had no fever. States he has had a chronic cough which is nonproductive. Denies leg swelling leg cramps or chest pain - Physicial Exam PE: 06/19/17 Awake alert no acute distress lungs are with faint crackles at the right apices otherwise no wheezing normal respiratory effort. Heart is regular without murmurs rubs or gallops. Abdomen is soft nontender skin is warm and dry no rash appreciated neurologically patient is alert and oriented 3 gait is normal good strength throughout 06/20/17 09:30 - Medical Decision Making 06/19/17 76-year-old history of CLL persistent right upper lobe infiltrate despite outpatient antibiotics. Plan to increase the range of coverage with vancomycin and Zosyn, chest x-ray, will admit to the hospitalist service and request infectious disease consult basic labs EKG IV hydration
[2017-06-20 12:21] LABS: MCH 29.4 pg (25.7-33.7); MEAN CELL VOLUME 91.8 fl (80-96); MEAN PLT VOLUME 8.5 fl (7.5-11.1); PLATELET COUNT 188 K/MM3 (134-434); RDW 16.1 % (11.9-15.9)
[2017-06-20 12:24] LABS: WHITE BLOOD COUNT 209.1 K/mm3 (4.0-10.0)
--- NOTE | 2017-06-20 13:24 | PN ---
Progress Note (short form) - Note Progress Note: Progress Note (short form) - Note Progress Note: patient seen and examined doing well Denies any complaints AFVSS Cor: RSR, No murmurs, No gallops Lungs: Clear to P&A Abd: Soft, Normal bowel sounds, No organomegaly Ext:No significant edema Vital Signs Period Temp Pulse Resp BP Sys/Mccracken Pulse Ox Last 24 Hr 97.9 F-98.1 F 60-64 16-24 124-139/70-71 97-98 CBC, BMP 06/20/17 11:45 06/19/17 06:30 Active Medications Generic Name Dose Route Start Last Admin Trade Name Freq PRN Reason Stop Dose Admin Acetaminophen 650 mg 06/18/17 18:34 Tylenol - PO Q4H PRN FEVER OR PAIN Atorvastatin Calcium 80 mg 06/20/17 22:00 Lipitor - PO HS BINDU Heparin Sodium (Porcine) 5,000 unit 06/18/17 22:00 06/20/17 06:35 Heparin - SQ 5,000 unit TID BINDU Administration Ceftriaxone Sodium 2 gm/ 100 mls @ 200 mls/hr 06/19/17 10:00 06/20/17 09:26 Dextrose IVPB 200 mls/hr DAILY BINDU Administration Lisinopril 5 mg 06/19/17 10:00 06/20/17 09:26 Prinivil PO 5 mg DAILY BINDU Administration A/P 76 y/o patient with CLL Here for RUL pneumonia on ceftriaxone Getting ID w/u
[2017-06-20 14:59] LABS: PLATELET ESTIMATE ADEQUATE; TOTAL CELLS COUNTED 100
[2017-06-20 15:00] LABS: SMUDGE CELLS MANY
--- NOTE | 2017-06-20 15:49 | PN ---
Physical Exam: SUBJECTIVE: Patient seen and examined by me at bedside. No overnight events noted. Patient denies any symptoms and reports feeling a lot better than initial presentation. Patient states he is coughing less with no sputum. Otherwise, patient denies fever, chills, nausea, vomiting, abdominal pain, chest pain, palpitations, shortness of breath. OBJECTIVE: Vital Signs Period Temp Pulse Resp BP Sys/Mccracken Pulse Ox Last 24 Hr 97.7 F-98.1 F 60-64 16-24 122-139/70-71 97-98 GENERAL: The patient is awake, alert, and fully oriented, in no acute distress. EYES: PERRL, extraocular movements intact, sclera anicteric, conjunctiva clear. No ptosis. ENT: Oropharynx clear without exudates, moist mucous membranes. LUNGS: Breath sounds equal, clear to auscultation bilaterally, no wheezes, no crackles, no accessory muscle use. HEART: Regular rate and rhythm without murmur, rub or gallop. ABDOMEN: Soft, nontender, nondistended, normoactive bowel sounds, no guarding or rebound tenderness EXTREMITIES: No peripheral edema. 3 nontender axillary lymphadenopathy. Laboratory Results - last 24 hr 06/18/17 06/20/17 06/20/17 11:57 06:00 06:00 WBC RBC Hgb Hct MCV MCH MCHC RDW Plt Count MPV Total Counted Neutrophils % Neutrophils % (Manual) Lymphocytes % Lymphocytes % (Manual) Monocytes % (Manual) Smudge Cells Platelet Estimate ESR Cancelled LD Total 163 D IgG 633 L IgM 44 06/20/17 06/20/17 11:20 11:45 WBC 209.1 H* RBC 4.15 Hgb 12.2 Hct 38.1 MCV 91.8 MCH 29.4 MCHC 32.0 RDW 16.1 H Plt Count 188 MPV 8.5 Total Counted 100 Neutrophils % No Result Required. Neutrophils % (Manual) 5.0 L D Lymphocytes % No Result Required. Lymphocytes % (Manual) 93.0 H* Monocytes % (Manual) 1 L Smudge Cells Many Platelet Estimate Adequate ESR 5 LD Total IgG IgM Active Medications Generic Name Dose Route Start Last Admin Trade Name Freq PRN Reason Stop Dose Admin Acetaminophen 650 mg 06/18/17 18:34 Tylenol - PO Q4H PRN FEVER OR PAIN Atorvastatin Calcium 80 mg 06/20/17 22:00 Lipitor - PO HS BINDU Heparin Sodium (Porcine) 5,000 unit 06/18/17 22:00 06/20/17 14:24 Heparin - SQ 5,000 unit TID BINDU Administration Ceftriaxone Sodium 2 gm/ 100 mls @ 200 mls/hr 06/19/17 10:00 06/20/17 09:26 Dextrose IVPB 200 mls/hr DAILY BINDU Administration Lisinopril 5 mg 06/19/17 10:00 06/20/17 09:26 Prinivil PO 5 mg DAILY BINDU Administration 06/18/17 17:00 Blood - Peripheral Venous Blood Culture - Preliminary NO GROWTH OBTAINED AFTER 24 HOURS, INCUBATION TO CONTINUE FOR 4 DAYS. 06/18/17 17:00 Blood - Peripheral Venous Blood Culture - Preliminary NO GROWTH OBTAINED AFTER 24 HOURS, INCUBATION TO CONTINUE FOR 4 DAYS. 06/19/17 07:25 Sputum - Expectorated Gram Stain - Final 06/19/17 11:57 Serum Cryptococcal Antigen - Preliminary CXR 06/18 - RUL consolidation CT Chest 06/18 - In comparison to a previous CT exam of 01/02/2017 interval development of a right upper lobe infiltrate is noted. The remainder of the exam appears unchanged. Stable bilateral axillary lymphadenopathy is noted. There is partial imaging of bilateral supraclavicular lymphadenopathy without obvious interval change. Stable slightly prominent bilateral hilar lymph nodes are seen. ASSESSMENT/PLAN: Patient is a 76 year old male who was sent by his oncologist for failed outpatient pneumonia therapy with Ceftriaxone and Azithromycin. Patient admitted for further monitoring and management. Right Upper Lobe Community Acquired Pneumonia -CURB65 of 1 however, patient has CLL and is immunocompromised with failed outpatient therapy and symptoms of fever, chills, night sweats. -Continue Ceftriaxone 2gm daily to cover for strep pneumo -Mycoplasma pneumoniae IgM, AFB sputum cultures and Quant Gold pending -Negative pressure isolation room while ruling out for TB -Tylenol 650mg PO Q4H PRN for fevers CLL -Last treated with chemotherapy in 2012 -Today trending down with 209 today -Follow up on Ig panel -Continue to monitor CBC HTN-Controlled -Continue Lisinopril 5mg daily HLD -Continue Lipitor 80mg daily F/E/N -On no fluids. Tolerating PO -Electrolytes wnl -Sodium controlled diet Prophylaxis -High Risk. Heparin 5000 units SQ Q8H for DVT -No GI required Disposition -Full code -Hematology workup pending. Still need AFB sputum cultures Visit type - Emergency Visit Emergency Visit: Yes ED Registration Date: 06/18/17 Care time: The patient presented to the Emergency Department on the above date and was hospitalized for further evaluation of their emergent condition. - New Patient This patient is new to me today: No - Critical Care Critical Care patient: No - Discharge Referral Referred to [facility] Med P.C.: No
--- NOTE | 2017-06-20 16:18 | PN ---
Teaching Attending Note Name of Resident: Shahana Cole ATTENDING PHYSICIAN STATEMENT I saw and evaluated the patient. I reviewed the resident's note and discussed the case with the resident. I agree with the resident's findings and plan as documented. SUBJECTIVE: No OSB or CP . has no fever or chills. No night sweats OBJECTIVE: NAD CV: RRR, NO MRG Lungs: CTAB Ext: no edema . Lymphatic: has 3 non tender, LAP in R axilla biggest measures around 2cm in diameter. ASSESSMENT AND PLAN: Mr. Kline is a pleasant gentleman with h/o CLL , HTN, and HLP who presented with fever , chills, cough and sputum production. He was found ot have RUL PNA 1- RUL CAP : significantly improved - cont ceftriaxone day 2 - follow blood and sputum cx - follow serology - QTF gold pending - sputum for AFP 2- H/o CLL: treated with chemo in 2012. - f/u with heme 3- h/o HTN: cont lisinopril 4- HLP: cont statin DVT PX
[2017-06-20] MEDS: ATORVASTATIN CA 80 MG TABLET (FP) PO SCH (21:47)
[2017-06-21] MEDS: HEPARIN NA (PORCINE) 5,000 UNITS/ML 1ML VIAL SQ SCH ×3 (06:01→21:50)
[2017-06-21 08:06] LABS: QFT TB AG - NIL VALUE 0.01 IU/mL (.); QUANT MITOGEN VALUE 7.18 IU/mL (.); QUANT NIL VALUE 0.04 IU/mL (.); QUANT TB AG VALUE 0.05 IU/mL (.); QUANTIFERON GOLD Negative (Negative)
--- NOTE | 2017-06-21 09:23 | PN ---
Progress Note (short form) - Note Progress Note: Progress Note (short form) - Note Progress Note: patient seen and examined doing well sitting in bed denies any complaints Vital Signs Period Temp Pulse Resp BP Sys/Mccracken Pulse Ox Last 24 Hr 97.6 F-97.9 F 54-64 20-20 113-140/55-79 99 AFVSS Cor: RSR, No murmurs, No gallops Lungs: Clear to P&A Abd: Soft, Normal bowel sounds, No organomegaly Ext:No significant edema CBC, BMP 06/20/17 11:45 06/19/17 06:30 Active Medications Generic Name Dose Route Start Last Admin Trade Name Freq PRN Reason Stop Dose Admin Acetaminophen 650 mg 06/18/17 18:34 Tylenol - PO Q4H PRN FEVER OR PAIN Atorvastatin Calcium 80 mg 06/20/17 22:00 06/20/17 21:47 Lipitor - PO 80 mg HS BINDU Administration Heparin Sodium (Porcine) 5,000 unit 06/18/17 22:00 06/21/17 06:01 Heparin - SQ 5,000 unit TID BINDU Administration Ceftriaxone Sodium 2 gm/ 100 mls @ 200 mls/hr 06/19/17 10:00 06/20/17 09:26 Dextrose IVPB 200 mls/hr DAILY BINDU Administration Lisinopril 5 mg 06/19/17 10:00 06/20/17 09:26 Prinivil PO 5 mg DAILY BINDU Administration A/P 76 y/o patient with CLL Here for RUL pneumonia on ceftriaxone- ID following f/v Immunoglobulin levels, if low can give IVIG
[2017-06-21] MEDS ORDERED: PT OWN MED DRAWER 7, Y5N ONE (09:32)
[2017-06-21] MEDS: CEFTRIAXONE 2 GM in DEXTROSE 5%-WATER - 100 ML IVPB SCH (09:32)
[2017-06-21] MEDS: LISINOPRIL 5 MG TABLET (FP) PO SCH (09:33)
--- NOTE | 2017-06-21 14:27 | PN ---
Progress Note (short form) - Note Progress Note: Subjective: no fever or chills. has no CP or SOB . no night sweats Objective: Vital Signs: Last Vital Signs Temp Pulse Resp BP Pulse Ox 97.3 F L 61 20 122/62 98 06/21/17 14:07 06/21/17 14:07 06/21/17 14:07 06/21/17 14:07 06/21/17 09:00 Laboratory Results - last 24 hr 06/19/17 06/20/17 06/20/17 06:30 06:00 11:45 Total Counted 100 Neutrophils % (Manual) 5.0 L D Lymphocytes % (Manual) 93.0 H* Monocytes % (Manual) 1 L Smudge Cells Many Platelet Estimate Adequate IgA 26 L TB Test (QFT) Negative Physical Exam: NAD CV: RRR, NO MRG Lungs: CTAB Ext: no edema . Lymphatic: has 3 non tender, LAP in R axilla biggest measures around 2cm in diameter. ASSESSMENT AND PLAN: Mr. Kline is a pleasant gentleman with h/o CLL , HTN, and HLP who presented with fever , chills, cough and sputum production. He was found ot have RUL PNA 1- RUL CAP : significantly improved on Abx . TB is unlikely. QTF gold Neg - cont ceftiraxone day 3 - psutum cx neg - blood cx neg to date - first sputum sample did not show any AFB, cx is pending 2- H/o CLL: treated with chemo in 2012. - f/u with heme 3- h/o HTN: cont lisinopril 4- HLP: cont statin DVT PX Will d/w ID about his dispo Visit type - Emergency Visit Emergency Visit: Yes ED Registration Date: 06/18/17 Care time: The patient presented to the Emergency Department on the above date and was hospitalized for further evaluation of their emergent condition. - New Patient This patient is new to me today: No - Critical Care Critical Care patient: No
[2017-06-21] MEDS: ATORVASTATIN CA 80 MG TABLET (FP) PO SCH (21:51)
[2017-06-22] MEDS: HEPARIN NA (PORCINE) 5,000 UNITS/ML 1ML VIAL SQ SCH ×2 (06:37→15:33)
[2017-06-22 08:14] LABS: MCH 29.5 pg (25.7-33.7); MCHC 31.9 g/dl (32.0-35.9); MEAN CELL VOLUME 92.4 fl (80-96); MEAN PLT VOLUME 8.7 fl (7.5-11.1); PLATELET COUNT 176 K/MM3 (134-434); RDW 15.9 % (11.9-15.9)
[2017-06-22 08:23] LABS: WHITE BLOOD COUNT 197.3 K/mm3 (4.0-10.0)
--- NOTE | 2017-06-22 09:01 | PN ---
Physical Exam: SUBJECTIVE: Patient seen and examined OBJECTIVE: Vital Signs Period Temp Pulse Resp BP Sys/Mccracken Pulse Ox Last 24 Hr 97.3 F-98.5 F 57-61 20-20 113-131/62-69 98 GENERAL: The patient is awake, alert, and fully oriented, in no acute distress. HEAD: Normal with no signs of trauma. EYES: PERRL, extraocular movements intact, sclera anicteric, conjunctiva clear. No ptosis. ENT: Ears normal, nares patent, oropharynx clear without exudates, moist mucous membranes. NECK: Trachea midline, full range of motion, supple. LUNGS: Breath sounds equal, clear to auscultation bilaterally, no wheezes, no crackles, no accessory muscle use. HEART: Regular rate and rhythm, S1, S2 without murmur, rub or gallop. ABDOMEN: Soft, nontender, nondistended, normoactive bowel sounds, no guarding, no rebound, no hepatosplenomegaly, no masses. EXTREMITIES: 2+ pulses, warm, well-perfused, no edema. NEUROLOGICAL: Cranial nerves II through XII grossly intact. Normal speech, gait not observed. PSYCH: Normal mood, normal affect. SKIN: Warm, dry, normal turgor, no rashes or lesions noted Laboratory Results - last 24 hr 06/22/17 06:30 WBC 197.3 H* RBC 4.08 Hgb 12.0 Hct 37.7 MCV 92.4 MCH 29.5 MCHC 31.9 L RDW 15.9 Plt Count 176 MPV 8.7 Neutrophils % No Result Required. Lymphocytes % No Result Required. Active Medications Generic Name Dose Route Start Last Admin Trade Name Luis PRN Reason Stop Dose Admin Acetaminophen 650 mg 06/18/17 18:34 Tylenol - PO Q4H PRN FEVER OR PAIN Atorvastatin Calcium 80 mg 06/20/17 22:00 06/21/17 21:51 Lipitor - PO 80 mg HS BINDU Administration Heparin Sodium (Porcine) 5,000 unit 06/18/17 22:00 06/22/17 06:37 Heparin - SQ 5,000 unit TID BINDU Administration Ceftriaxone Sodium 2 gm/ 100 mls @ 200 mls/hr 06/19/17 10:00 06/21/17 09:32 Dextrose IVPB 200 mls/hr DAILY BINDU Administration Lisinopril 5 mg 06/19/17 10:00 06/21/17 09:33 Prinivil PO 5 mg DAILY BINDU Administration ASSESSMENT/PLAN:
[2017-06-22] MEDS ORDERED: PT OWN MED DRAWER 7, Y5N ONE (09:10)
[2017-06-22] MEDS: LISINOPRIL 5 MG TABLET (FP) PO SCH (09:20)
[2017-06-22] MEDS: CEFTRIAXONE 2 GM in DEXTROSE 5%-WATER - 100 ML IVPB SCH (09:52)
[2017-06-22 10:42] LABS: ANISOCYTOSIS 1+; HYPOCHROMIA 0; MACROCYTOSIS 0; METAMYELOCYTE 0 % (0-2); MICROCYTOSIS 1+; MYELOCYTE 0 % (0-2); PLATELET ESTIMATE NORMAL; POIKILOCYTOSIS 0; POLYCHROMASIA 0; REACTIVE LYMPHOCYTES 0 % (0-80)
--- NOTE | 2017-06-22 12:00 | CONS ---
DATE OF CONSULTATION: HISTORY: This is a 76-year-old [place]ese male who I am asked to see for evaluation of productive cough over the last 3-4 weeks associated with night sweats. He has been followed by Dr. Clements with a long history of chronic lymphocytic leukemia, which was diagnosed in 2010 and treated with 6 courses of Rituxan in 2012 apparently with good clinical response. He has been intermittently followed by Oncology during this period of time. Three to 4 weeks ago he noted onset of a productive cough with green sputum and sought medical attention with his primary medical doctor. He was a course of azithromycin and prompts that his cough persisted prompting him to go back more recently for follow up. An x-ray apparently showed a right-sided infiltrate, and he was given Tamiflu and another course of azithromycin. He saw his oncologist this week and was advised admission whereupon he had a CAT scan, which showed an infiltrate in the right upper lobe with air bronchograms. He was not febrile nor does he have any shortness of breath or hypoxemia. He does, however, note that he wets his clothes every night for several weeks. He is an [place] immigrant having come to the [place] when he was 19 years of age. He grew up on a farm in [place] and has no prior history of TB exposure of treatment. A CAT scan of the abdomen here showed hepatic granulomas, and a chest CT had a 5 x 3.5 wedge-shaped infiltrate with air bronchograms in the anterior segment of the right upper lobe. Stable homogenous retrocrural intra-abdominal retroperitoneal adenopathy was noted. As the case was presented to me by phone last night in the ER, it sounded as if he was acutely ill and was given a dose of vancomycin and Zosyn. At present, however, the patient appears very comfortable sitting in a chair in no distress whatsoever. PAST MEDICAL HISTORY: Positive for CLL, hyperlipidemia, hypertension. MEDICATIONS: Atorvastatin, lisinopril/hydrochlorothiazide, timolol eye drops. SOCIAL HISTORY: Nonsmoker. Occasional alcohol. . Living at home with no travel, pets, or hobbies. FAMILY HISTORY: Noncontributory. REVIEW OF SYSTEMS: Respiratory: Productive cough with green sputum. No hemoptysis or shortness of breath. Cardiac: No chest pain, palpitations, syncope, murmur. Gastrointestinal: No nausea, vomiting, diarrhea, abdominal pain, loss of appetite. Genitourinary: No dysuria, hematuria, urinary frequency. PHYSICAL EXAMINATION: General: He is an alert male in no acute distress. Vital Signs: Temperature 98, pulse 68, blood pressure 115/61, respirations 20. HEENT: Dentition appears to be in good repair. Neck: Supple without adenopathy. Lungs: Clear to percussion and auscultation. Heart: S1, S2. Regular rhythm without audible murmur. Abdomen: Soft, nontender without hepatosplenomegaly. Extremities: Without clubbing, cyanosis, or edema. LABORATORY DATA: The white count is 234,000 with a hemoglobin 13.2, platelets 206 with the differential predominantly 86 lymphocytes, BUN 18, creatinine 1.2. Liver enzymes within normal limits. CRP 0.5. Two sets of blood cultures obtained along with a sputum culture currently pending. ASSESSMENT: A 76-year-old male with a history of chronic lymphocytic leukemia status post Rituxan in 2012 who presents now with what appears to be progressive chronic lymphocytic leukemia. The possibility that his night sweats may be part of his chronic lymphocytic leukemia transformation is considered, though his adenopathy appears, otherwise, stable by imaging. With regard to the infiltrate, he received a course of azithromycin, and essentially that was the only antibiotic treatment he has gotten. I was told that he had received ceftriaxone by the emergency room landscape maintenance internship, but I was unable to verify that with his daughter or with the patient. He certainly needs to be treated with an antibiotic for possible encapsulated bacteria, primarily Streptococcus pneumoniae, and I will give him ceftriaxone for this reason. Additional considerations include tuberculosis given the night sweats, chronicity of the cough, and background history of being from [place] along with the presence of healed granulomas in the liver on CAT scan imaging. For this reason, I will get sputums for him for acid fast along with a QuantiFeron Gold and isolate him primarily as a precaution. The case was discussed at length with his daughter with regard to my recommendations as well as the house staff. GABRIELA STERN M.D. LYNNETTE/[id number]
[2017-06-22 13:03] VITALS: BP 132/57; PULSE 61; TEMP 97.7
--- NOTE | 2017-06-22 14:48 | PN ---
Progress Note, Physician Chief Complaint: ID Asymptomatic 4 days Ceftriaxone NO fevers - Current Medication List Current Medications: Active Medications Acetaminophen (Tylenol -) 650 mg PO Q4H PRN PRN Reason: FEVER OR PAIN Atorvastatin Calcium (Lipitor -) 80 mg PO HS [facility] Last Admin: 06/21/17 21:51 Dose: 80 mg Heparin Sodium (Porcine) (Heparin -) 5,000 unit SQ TID [facility] Last Admin: 06/22/17 06:37 Dose: 5,000 unit Ceftriaxone Sodium 2 gm/ (Dextrose) 100 mls @ 200 mls/hr IVPB DAILY [facility] Last Admin: 06/22/17 09:52 Dose: 200 mls/hr Lisinopril (Prinivil) 5 mg PO DAILY [facility] Last Admin: 06/22/17 09:20 Dose: 5 mg - Objective Vital Signs: Vital Signs Temperature 97.7 F 06/22/17 10:00 Pulse Rate 61 06/22/17 10:00 Respiratory Rate 20 06/22/17 10:00 Blood Pressure 132/57 06/22/17 10:00 O2 Sat by Pulse Oximetry (%) 98 06/22/17 09:00 Labs: CBC, BMP 06/22/17 06:30 06/19/17 06:30 Problem List - Problems (1) Chronic lymphocytic leukemia (CLL), B-cell Code(s): C91.10 - CHRONIC LYMPHOCYTIC LEUK OF B-CELL TYPE NOT ACHIEVE REMIS (2) Pneumonia Code(s): J18.9 - PNEUMONIA, UNSPECIFIED ORGANISM Qualifiers: Pneumonia type: due to unspecified organism Laterality: right Lung location: upper lobe of lung Qualified Code(s): J18.1 - Lobar pneumonia, unspecified organism Assessment/Plan Microbiology 06/22/17 06:00 Urine For Antigen Detection Legionella Antigen - Final 06/22/17 06:00 Urine For Antigen Detection Streptococcus pneumoniae Antigen (M - Final 06/19/17 20:00 Sputum - Expectorated Direct Acid Fast Bacilli Smear - Final 06/19/17 20:00 Sputum - Expectorated AFB Smear Concentration - Preliminary 06/19/17 20:00 Sputum - Expectorated Mycobacterial Culture - Preliminary 06/19/17 11:57 Serum Cryptococcal Antigen - Preliminary Laboratory Tests 06/19/17 06/19/17 06/22/17 06:30 06:30 06:30 WBC 197.3 H* Hgb 12.0 Hct 37.7 Plt Count 176 BUN 18 Creatinine 1.2 TB Test (QFT) Negative As discussed agree to stop isolation as risk for TB seems low Treat for bacterial PNA with either Levofloxacin or Augmentin for few days Perhaps chest xray lags behind clinical picture Sandy HENRIQUEZ
--- NOTE | 2017-06-22 15:00 | PN ---
Teaching Attending Note Name of Resident: Jennifer Perla ATTENDING PHYSICIAN STATEMENT I saw and evaluated the patient. I reviewed the resident's note and discussed the case with the resident. I agree with the resident's findings and plan as documented. SUBJECTIVE: no Cp or SOB, no fever or chills OBJECTIVE: NAD CV: RRR, NO MRG Lungs: CTAB Ext: no edema . ASSESSMENT AND PLAN: Mr. Kline is a pleasant gentleman with h/o CLL , HTN, and HLP who presented with fever , chills, cough and sputum production. He was found ot have RUL PNA 1- RUL CAP : significantly improved on Abx . TB is unlikely. QTF gold Neg , AFB cx on one sample pending still - switch Abx to po abx pending his EKG ( qtc) - blood cx NGTD 2- H/o CLL: treated with chemo in 2012. - f/u with heme , to evaluate for need for IVIG ( Low IgG, and IgA ) 3- h/o HTN: cont lisinopril 4- HLP: cont statin DVT PX
--- NOTE | 2017-06-22 17:06 | EKG ---
Test Reason : Blood Pressure : / mmHG Vent. Rate : 055 BPM Atrial Rate : 055 BPM P-R Int : 142 ms QRS Dur : 092 ms QT Int : 416 ms P-R-T Axes : 030 030 041 degrees QTc Int : 397 ms SINUS BRADYCARDIA OTHERWISE NORMAL ECG WHEN COMPARED WITH ECG OF 11-SEP-2012 19:15, VENT. RATE HAS DECREASED BY 36 BPM Confirmed by HANNAH RÍOS MD ([id number]) on 06/22/2017 5:05:54 PM Referred By: Confirmed By:HANNAH RÍOS MD
--- NOTE | 2017-06-22 19:17 | DS ---
Physical Exam: SUBJECTIVE: Patient seen and examined. Sitting in chair by bed. Offers no complaints. Wants to go home. Denies fever, chills, CP, sob. OBJECTIVE: Vital Signs Period Temp Pulse Resp BP Sys/Mccracken Pulse Ox Last 24 Hr 97.7 F-98.5 F 57-61 20-20 113-132/57-64 98-98 PHYSICAL EXAM GENERAL: aaox3, nad LUNGS: CTAB, no wheezes, rales, rhonchi HEART: rrr, normal S1/S2, no m/r/g, no JVD ABDOMEN: Soft, ntnd LOWER EXTREMITIES: 2+ DP pulses, wwp, no edema LABS Laboratory Results - last 24 hr 06/18/17 06/22/17 11:57 06:30 WBC 197.3 H* RBC 4.08 Hgb 12.0 Hct 37.7 MCV 92.4 MCH 29.5 MCHC 31.9 L RDW 15.9 Plt Count 176 MPV 8.7 Neutrophils % No Result Required. Neutrophils % (Manual) 4.6 L Band Neutrophils % 0.0 Lymphocytes % No Result Required. Lymphocytes % (Manual) 93.1 H* Monocytes % (Manual) 2 L D Eosinophils % (Manual) 0.0 Basophils % (Manual) 0.0 Myelocytes % (Man) 0 Metamyelocytes 0 Hypochromia 0 Platelet Estimate Normal Polychromasia 0 Poikilocytosis 0 Anisocytosis 1+ Microcytosis 1+ Macrocytosis 0 M.pneumoniae IgM Titer <770 06/18/17 06/18/17 06/19/17 11:57 11:57 06:30 IgG 633 L Pending IgA IgM 44 M.pneumoniae IgM Titer <770 TB Test (QFT) 06/19/17 06/20/17 06:30 06:00 IgG IgA 26 L IgM M.pneumoniae IgM Titer TB Test (QFT) Negative HOSPITAL COURSE: Date of Admission:06/18/17 Date of Discharge: 06/22/17 Pre-hospital Course: 76yo man with PMH of CLL, HTN, and HLD who was sent over by Dr. Clements (Oncology ) oncologist due to failed outpatient therapy for PNA. He had fever, chills, productive cough for ~3weeks, received Tamiflu and anti-histamine without improvement. CXR on Thursday (06/13/17) revealed consolidation, and pt given a Z-pack. On 06/18, he had a Chest CT, which revealed worsening consolidation, and was sent to ED for further management. No recent travel or sick contacts. Denies abdominal pain, dysuria, hematuria, chest pain, palpitations, vision changes, numbness, weakness, acute vision changes, rashes, diarrhea, constipation, increasing fatigue or malaise. Subsequent Hospital Course: Briefly, patient found to have RUL PNA and was treated with 4 days of Ceftriaxone, and discharged home on 5 additional days of Augmentin 875mg BID. Microbiology work-up was negative for Legionella, Strep pneumoniae, cryptococcus , and TB (Quant GOLD neg, Sputum AFB smear neg) (see below). Patient was afebrile for the past 72 hours with decreasing WBC count. Patient had no further cough or complaints of shortness of breath, and was satting 98% on RA prior discharge. His HTN was well controlled on home regiment of lisinpril. 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 Hematology was made aware and patient was instructed to follow-up with his [employer] regarding out-patient IVIG treatment. Microbiology 06/18/17 17:00 Blood - Peripheral Venous Blood Culture - Preliminary NO GROWTH OBTAINED AFTER 96 HOURS, INCUBATION TO CONTINUE FOR 1 DAYS. 06/18/17 17:00 Blood - Peripheral Venous Blood Culture - Preliminary NO GROWTH OBTAINED AFTER 96 HOURS, INCUBATION TO CONTINUE FOR 1 DAYS. 06/22/17 06:00 Urine For Antigen Detection Legionella Antigen - Final - NEG 06/22/17 06:00 Urine For Antigen Detection Streptococcus pneumoniae Antigen -NEG 06/19/17 20:00 Sputum - Expectorated AFB Smear Concentration - Preliminary - NEG 06/19/17 20:00 Sputum - Expectorated Direct Acid Fast Bacilli Smear - Final -NEG 06/19/17 20:00 Sputum - Expectorated Mycobacterial Culture - Preliminary - NEG 06/19/17 07:25 Sputum - Expectorated Gram Stain - Final 06/19/17 07:25 Sputum - Expectorated Sputum Culture - Final - NORMAL RESPIRATORY MO 06/19/17 06:30 Urine - Urine Clean Catch Urine Culture - Final - NO GROWTH OBTAINED 06/19/17 11:57 Serum Cryptococcal Antigen - Preliminary -NEG IMAGING CT Chest 06/18 - In comparison to a previous CT exam of 01/02/2017 interval development of a right upper lobe infiltrate is noted. The remainder of the exam appears unchanged. Stable bilateral axillary lymphadenopathy is noted. There is partial imaging of bilateral supraclavicular lymphadenopathy without obvious interval change. Stable slightly prominent bilateral hilar lymph nodes are seen. Minutes to complete discharge: 45 Discharge Summary Reason For Visit: CHRONIC LYMPHOCYTIC LEUKEMIA Condition: Stable - Instructions Diet, Activity, Other Instructions: You were admitted to hospital for Right upper lobe pneumonia. Your immunoglobulin levels (protein in the blood) was found to be low, and will need to be followed by your Oncologist. Recommendations: -You may resume your regular daily activities and diet. Medications: -Continue your regular home medications. In addition, take 1 tablet of Augmentin (antibiotic) twice per day (12 hours apart) for the next 5 days. Your first dose will be tomorrow morning. Follow-ups: Please make an appointment to see your Oncologist within 1 week. You should discuss your low immunoglobulin levels (IgA and IgG) and whether you will receive treatment for it. Please return to the Emergency Department if you have worsening shortness of breath, fever, chills, or new or concerning symptoms. Referrals: STAFF,NOT ON [Primary Care Provider] - Kurt Clements MD [Staff Physician] - Disposition: HOME - Home Medications Comprehensive Discharge Medication List: Ambulatory Orders Atorvastatin Calcium [Lipitor] 80 mg PO HS 09/11/12 Bimatoprost [Lumigan] 1 drop IO DAILY 06/18/17 Lisinopril/Hydrochlorothiazide [Lisinopril-Hctz 10-12.5 mg Tab] 1 each PO DAILY 06/18/17 Timolol 0.5% [Timoptic 0.5%] 1 drop OD DAILY 06/18/17 Amox-Tr/K Cl [Augmentin - 875Mg Tablet] 1 tab PO BID #10 tablet 06/22/17 This patient is new to me today: Yes Date on this admission: 06/23/17 Emergency Visit: No Critical Care patient: No - Discharge Referral Referred to [facility] Med P.C.: No
== END 2017-06-22 16:26 | disposition home or self-care (01) | DRG 194 ==
LOC: JER 13:35 → JERBED 17:10 → J7W 18:51
PROVIDERS: ADMIT Internal Medicine Hematology & Oncology; ATTEND Internal Medicine
DX: J18.9 Pneumonia, unspecified organism (principal); C91.10 Chronic lymphocytic leukemia of B-cell type not having achieved remission; I10 Essential (primary) hypertension; E78.5 Hyperlipidemia, unspecified
CPT/HCPCS: 36415; 71010-TC; 71260-TC; 74177-TC; 80048; 80053; 81003; 82550; 82784; 83605; 83615; 84484; 85025; 85027; 85651; 86140; 86480; 86738; 87040; 87070; 87086; 87116; 87205; 87206; 87899; 93005; 93010; 97116-GP; 97161-GP; 99282-25; C1887; J1644

== ENCOUNTER 2018-05-06 07:44 | Day surgery (SDC) | payer OTHER ==
[2018-05-04 11:48] VITALS: BMI 23.5
[2018-05-06] MEDS ORDERED: PROPOFOL 20 ML ONE (08:08)
[2018-05-06 10:48] VITALS: BP 110/65; PULSE 64; TEMP 98
--- NOTE | 2018-05-11 10:25 | PATH ---
Surgical Pathology Report Patient Name: IZZY DEJESUS [facility] Rec. #: [id number] /Age/Gender: 1940 (Age: 77) / M Account: [id number] Location: [facility] Taken: 05/06/2018 Received: 05/06/2018 Reported: 05/11/2018 Physicians: Britton Mustafa M.D. Specimen(s) Received A: BX DUODENUM B: BX ANTRUM Clinical History GERD Abdominal pain, gastritis, duodenitis Final Diagnosis A. DUODENUM, BIOPSY: MILD CHRONIC DUODENITIS. B. ANTRUM, BIOPSY: MODERATE CHRONIC GASTRITIS WITH INTESTINAL METAPLASIA. IMMUNOSTAIN IS NEGATIVE FOR H. PYLORI ORGANISMS. Electronically Signed Simin Nowak M.D. Gross Description A. Received in formalin, labeled "duodenum" is one piece of kirkland tissue measuring 0.2 cm in greatest dimension. Entirely submitted one cassette. B. Received in formalin, labeled "antrum" are two pieces of kirkland tissue measuring 0.2 cm and 0.4 cm in greatest dimension. Entirely submitted one cassette. AE/05/10/2018 ebram/05/10/2018
== END 2018-05-06 11:15 | disposition home or self-care (01) ==
LOC: FASU-ENDO 07:44
PROVIDERS: ATTEND Internal Medicine Gastroenterology
PROC: 0DB98ZX Excision of Duodenum, Via Natural or Artificial Opening Endoscopic, Diagnostic (ICD-10-PCS; principal; 2018-05-06 09:38)
PROC: 0DB68ZX Excision of Stomach, Via Natural or Artificial Opening Endoscopic, Diagnostic (ICD-10-PCS; 2018-05-06 09:38)
DX: K29.80 Duodenitis without bleeding (principal); K29.50 Unspecified chronic gastritis without bleeding; R10.13 Epigastric pain
CPT/HCPCS: 88305-TC; 88342-TC

== ENCOUNTER 2018-06-20 18:25 | Emergency (ER) | payer OTHER ==
[2018-06-20 18:40] VITALS: BMI 23.0
--- NOTE | 2018-06-20 18:52 | PDOC ---
History of Present Illness - General Chief Complaint: Rash Stated Complaint: RASH Time Seen by Provider: 06/20/18 18:52 History Source: Patient Exam Limitations: No Limitations - History of Present Illness Initial Comments: 77 yo M w a pmh of CLL (chemo 2013) on ibrutinib x9 days, Kenneth George Syndrome, HTN, HLD presenting to ED for the second time today with a rash that started at 1 AM last night. The patient was discharged from the ED this morning after getting diphehydramine and topical betamethasone. His daughter who is with him at bedside has a picture of the rash from this morning and it had progressed significantly since he left the ED this morning. The patient now reports feeling hot, chills, and significant;y more itchiness than he had this morning. Earlier this morning the rash was spotty around his abdomen but now his entire abdomen is full of the rash. The rash is also present on his arms and legs, but not on his palms or soles. He denies SOB, difficulty breathing, chest pain, mouth pain, throat swelling, n/ v/d, abdominal pain. 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 He denies having a fever. PCP: Wale Bond Oncologist: Dr. Clements Meds: ibrutinab, uloric, lisinopril, statin Allergies: Allopurinol Social Hx: Denies smoking, drinking, other illicit drug usage. Past History - Past Medical History Allergies/Adverse Reactions: Allergies Allergy/AdvReac Type Severity Reaction Status Date / Time allopurinol AdvReac Severe Rash Verified 06/20/18 18:40 Home Medications: Ambulatory Orders Atorvastatin Calcium [Lipitor] 80 mg PO HS 09/11/12 Lisinopril/Hydrochlorothiazide [Lisinopril-Hctz 10-12.5 mg Tab] 1 each PO DAILY 06/18/17 Timolol 0.5% [Timoptic 0.5%] 1 drop OU DAILY 06/18/17 Aspirin [ASA -] 81 mg PO Q48H 05/04/18 Bimatoprost [Lumigan] 1 drop OD DAILY 05/04/18 Febuxostat [Uloric] 40 mg PO DAILY 05/04/18 Betamethasone/Propylene Glyc [Betamethasone Dp Aug 0.05% Lot] 60 ml TP BID #1 lotion 06/20/18 Anemia: No Asthma: No Cancer: Yes (CLL s/p chemo 2013) Cardiac Disorders: No CVA: No COPD: No CHF: No Dementia: No Diabetes: No GI Disorders: No (RECENTLY WITH NAUSEA AND INCREASED BURPING) Disorders: No HTN: Yes Hypercholesterolemia: Yes Liver Disease: No Seizures: No Thyroid Disease: No - Surgical History Abdominal Surgery: No Appendectomy: No Cardiac Surgery: No Cholecystectomy: No Lung Surgery: No Neurologic Surgery: No Orthopedic Surgery: No - Suicide/Smoking/Psychosocial Hx Smoking Status: No Smoking History: Never smoked Have you smoked in the past 12 months: No Number of Cigarettes Smoked Daily: 0 Hx Alcohol Use: No (OCCASIONALLY) Drug/Substance Use Hx: No Substance Use Type: None Hx Substance Use Treatment: No Review of Systems - Review of Systems Able to Perform ROS?: Yes Comments:: CONSTITUTIONAL: Present: chills Absent: fever, no fatigue EYES: Absent: visual changes ENT: Absent: ear pain, no sore throat CARDIOVASCULAR: Absent: chest pain, no palpitations RESPIRATORY: Absent: cough, no SOB GI: Absent: abdominal pain, no nausea, no vomiting, no constipation, no diarrhea GENITOURINARY: Absent: dysuria, no frequency, no hematuria MUSKULOSKELETAL: Absent: back pain, no arthralgia, no myalgia SKIN: Present: rash NEURO: Absent: headache *Physical Exam - Vital Signs Last Vital Signs Temp Pulse Resp BP Pulse Ox 98.3 F 109 H 20 134/64 99 06/20/18 18:37 06/20/18 18:37 06/20/18 18:37 06/20/18 18:37 06/20/18 18:37 - Physical Exam Comments: GENERAL: Well-appearing, well-nourished. Moderate distress. HEENT: Normocephalic, atraumatic. PERRL, EOM intact. CARDIOVASCULAR: Tachycardic rate, regular rhythm. Normal S1, S2. PULMONARY: Patient is tachypneic. Clear to auscultation bilaterally. ABDOMEN: Soft, non-distended, non-tender. EXTREMITIES: Normal ROM in all four extremities. No gross deformities. SKIN: There is a diffuse morbiliform, maculopapular rash all over the patients body which is raised, blanches and is hot to touch. The rash is not on his palms, soles, face, or mucous membranes. Otherwise the rash covers his entire body. NEUROLOGICAL: No focal neurological deficits. Moderate Sedation - Procedure Monitoring Vital Signs: Procedure Monitoring Vital Signs Temperature 98.3 F 06/20/18 18:37 Pulse Rate 109 H 06/20/18 18:37 Respiratory Rate 20 06/20/18 18:37 Blood Pressure 134/64 06/20/18 18:37 O2 Sat by Pulse Oximetry (%) 99 06/20/18 18:37 ED Treatment Course - LABORATORY CBC & Chemistry Diagram: 06/20/18 19:24 06/20/18 19:24 Medical Decision Making - Medical Decision Making 77 yo M w a pmh of CLL (chemo 2013) on ibrutinib x9 days, Kenneth George Syndrome, HTN, HLD presenting to ED for the second time today with a rash that started at 1 AM last night. The patient was discharged from the ED this morning after getting diphehydramine and topical betamethasone. He is tachycardic and tachypneic now, both of which he was not experiencing this morning. DDx IBNLT: SJS, TEN, hives, urticaria, morbilliform drug reaction, DRESS, cellulitis. Plan: Cbc, Cmp, blood cultures, ID consult - sally Gusman, Oncology consult - Starr, Admit patient. Oncology Consult: Dr. Clements requested to start Vanc and Zosyn and send blood cultures. He also requested to consult ID and have them on the case. Dr. Clements requests to start a bicarb drip. - D5W and 2 amps of bicarb. 88 [place] amp of bicarb to help alkalinize his urine in concern for tumor lysis syndrome given that he is allergic to allopurinol. Dr. Clements also wants BID uric acid and phosphorous measurements. 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 Inpatient team is suggesting that patient would be better cared for at a burn center. We will transfer the patient to [facility]. Dr. Muhammad is the covering physician at [facility] who is accepting the transfer. *DC/Admit/Observation/Transfer Diagnosis at time of Disposition: Chronic lymphocytic leukemia (CLL), B-cell, Drug eruption, Rash - Discharge Dispostion Disposition: TRANSFER ACUTE CARE/OTHER HOSP Condition at time of disposition: Guarded Decision to Admit order: Yes - Referrals - Patient Instructions - Post Discharge Activity
[2018-06-20] MEDS ORDERED: methylPREDNISolone NA SUCC 125 MG/2 ML VIAL IVPUSH ONE (19:36)
[2018-06-20] MEDS ORDERED: methylPREDNISolone NA SUCC 125 MG/2 ML VIAL ONE (19:59)
[2018-06-20 20:01] LABS: HEMATOCRIT 39.6 % (35.4-49); MCH 30.1 pg (25.7-33.7); MCHC 32.8 g/dl (32.0-35.9); MEAN CELL VOLUME 91.7 fl (80-96); MEAN PLT VOLUME 9.2 fl (7.5-11.1); PLATELET COUNT 133 K/MM3 (134-434); RBC 4.32 M/mm3 (4.00-5.60); RDW 15.5 % (11.9-15.9)
--- NOTE | 2018-06-20 20:13 | PDOC ---
Attending Attestation - Resident Resident Name: Duane Brandt - ED Attending Attestation I have performed the following: I have examined & evaluated the patient, The case was reviewed & discussed with the resident, I agree w/resident's findings & plan, Exceptions are as noted - Physicial Exam PE: 06/20/18 21:21 awake alert lungs clear mucous membranes clear intact. heart reg tachycardia. abd soft nt nd. ext wwp. skin deep erythematous coalescent rash. some scaling. no blisters noted. warm to touch. involving trunk arms and legs. - Medical Decision Making initially d/w dr. clements, would like the patient started on solumedral, given vancomycin and zosyn for possible infectious source. due to concerns for high wbc, and possible elevation with steroids, tumor lysis syndrome recommend sodium bicarb drip to alkalinze the urine. started. per his request. d/w admission team. due to concerns for dorie vazquez, pt with high SCorten prognostic severity score, felt would be more appropriate treated at a burn center. d/w [facility] , will accept to ed to be evaluated by the burn fellow in the ED. d/w dr clements in agreements with transfer and family updated. d/w Dr Jb Hill attending at [facility], who accepted the transfer. BUN and creatinine just over baseline at 1.7, last was 1.6 uric acid normal, phosphorous normal. will add LDH. 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 The patient reports he was seen at the ED earlier today for the rash, the patient was prescribed Betamethasone and benadryl. The patient reports having the first dose of steroid at 5:00 pm, following they he noticed the symptoms progressiving. The patient states the rashes have increased in severity, associated with increased redness and warmth. Allergies: allopurinol. ONC: Dr. Pro Clements . - Medical Decision Making 06/20/18 20:15 Documentation prepared by Rosa Elena Vazquez, acting as medical scientist for Nesha Martins MD. 06/20/18 21:00 Call placed to [facility] for transfer. information discussed with Domingo. 06/20/18 21:[address] Graff. 06/20/18 21:[address] Muhammad @ [facility]. <Rosa Elena Vazquez - Last Filed: 06/20/18 21:33>
[2018-06-20] MEDS ORDERED: VANCOMYCIN 1,000 MG in DEXTROSE 5%-WATER - 250 ML IVPB ONE (20:17)
[2018-06-20] MEDS ORDERED: PIPERACILLIN/TAZOB 3.375 GM 3.375 GM in DEXTROSE 5%-WATER - 50 ML IVPB ONE (20:18)
[2018-06-20 20:26] LABS: ALBUMIN 4.6 g/dl (3.4-5.0); ALK PHOS 77 U/L (45-117); ANION GAP 8 MMOL/L (8-16); BLOOD UREA NITROGEN 28 mg/dL (7-18); CALCIUM 8.8 mg/dL (8.5-10.1); CHLORIDE 102 mmol/L (98-107); CO2 25 mmol/L (21-32); CREATININE 1.7 mg/dL (0.55-1.3); GLUCOSE,RANDOM 99 mg/dL (74-106); SGOT/AST 22 U/L (15-37); SGPT/ALT 27 U/L (13-61); SODIUM 135 mmol/L (136-145)
[2018-06-20 20:33] LABS: WHITE BLOOD COUNT 381.5 K/mm3 (4.0-10.0)
[2018-06-20 20:42] LABS: PHOSPHOROUS 3.1 mg/dL (2.5-4.9); URIC ACID 6.1 mg/dL (2.6-7.2)
[2018-06-20] MEDS ORDERED: PIPERACILLIN/TAZOB 3.375 GM 3.375 GM/50 ML BAG IVPB ONE (21:09)
[2018-06-20] MEDS ORDERED: VANCOMYCIN 1 GRAM (PRE-DOCKED) 1,000 MG/250 ML BAG IVPB ONE (21:09)
[2018-06-20 21:32] VITALS: PULSE 104
[2018-06-20] MEDS ORDERED: SODIUM CHLORIDE 0.9% 1000 ML INFUS.BAG IV ONE (21:54)
[2018-06-20 22:30] VITALS: BP 111/97; TEMP 98.2
== END 2018-06-20 23:49 | disposition short-term general hospital (02) ==
LOC: JER 18:25
PROC: 3E0337Z Introduction of Electrolytic and Water Balance Substance into Peripheral Vein, Percutaneous Approach (ICD-10-PCS; principal; 2018-06-20)
PROC: 3E03329 Introduction of Other Anti-infective into Peripheral Vein, Percutaneous Approach (ICD-10-PCS; 2018-06-20)
PROC: 3E033GC Introduction of Other Therapeutic Substance into Peripheral Vein, Percutaneous Approach (ICD-10-PCS; 2018-06-20)
DX: L27.1 Localized skin eruption due to drugs and medicaments taken internally (principal); L51.1 Stevens-Johnson syndrome; I10 Essential (primary) hypertension; C91.10 Chronic lymphocytic leukemia of B-cell type not having achieved remission
CPT/HCPCS: 36415; 80053; 83615; 84100; 84550; 85025; 87040; 99281-25; 99284-25; J7030

== ENCOUNTER 2019-08-15 07:00 | Day surgery (SDC) | payer OTHER ==
[2019-08-15] MEDS ORDERED: LIDOCAINE HCL/PF 2% SDV 5ML VIAL ONE (07:06)
[2019-08-15] MEDS ORDERED: PROPOFOL 20 ML ONE ×2 (07:06)
[2019-08-15 07:42] VITALS: BMI 22.0
[2019-08-15 08:56] VITALS: TEMP 97.8
[2019-08-15 10:13] VITALS: BP 108/57; PULSE 67
== END 2019-08-15 09:30 | disposition home or self-care (01) ==
LOC: FASU-ENDO 07:00
PROVIDERS: ATTEND Internal Medicine Gastroenterology
PROC: 0DJD8ZZ Inspection of Lower Intestinal Tract, Via Natural or Artificial Opening Endoscopic (ICD-10-PCS; principal; 2019-08-15 08:25)
DX: Z86.010 Personal history of colon polyps (principal); K57.30 Diverticulosis of large intestine without perforation or abscess without bleeding

== ENCOUNTER 2020-11-26 09:34 | Day surgery (SDC) | payer OTHER ==
[2020-11-22 13:17] VITALS: BMI 22.0
[2020-11-26] MEDS ORDERED: PROPOFOL 20 ML ONE ×2 (11:51)
[2020-11-26] MEDS ORDERED: ETOMIDATE 20 MG/10 ML AMPUL IVPUSH ONE (12:18)
[2020-11-26 13:19] VITALS: PULSE 60
[2020-11-26 14:31] VITALS: BP 140/74; TEMP 97.8
== END 2020-11-26 13:35 | disposition home or self-care (01) ==
LOC: FASU-ENDO 09:34
PROVIDERS: ATTEND Internal Medicine Gastroenterology
PROC: 0DB78ZX Excision of Stomach, Pylorus, Via Natural or Artificial Opening Endoscopic, Diagnostic (ICD-10-PCS; 2020-11-26)
PROC: 0DB98ZX Excision of Duodenum, Via Natural or Artificial Opening Endoscopic, Diagnostic (ICD-10-PCS; principal; 2020-11-26 12:22)
DX: K29.70 Gastritis, unspecified, without bleeding (principal); K29.80 Duodenitis without bleeding; R12 Heartburn
CPT/HCPCS: 88305-TC; 88342-TC

== ENCOUNTER 2021-06-26 11:41 | Emergency (ER) | payer OTHER ==
[2021-06-26 12:32] VITALS: BP 129/71; PULSE 92; TEMP 98.4; BMI 24.1
== END 2021-06-26 14:33 | disposition home or self-care (01) ==
LOC: JER 11:41
DX: U07.1 COVID-19 (principal); J02.9 Acute pharyngitis, unspecified
CPT/HCPCS: 71046-TC-FY; 87651; 87804; 99284-25; C9803; U0003; U0005

== ENCOUNTER 2021-12-24 16:25 | Emergency (ER) | payer OTHER ==
[2021-12-24] MEDS ORDERED: BEBTELOVIMAB (EUA) 175 MG/2 ML VIAL IVPUSH ONE (16:40)
[2021-12-24 16:49] VITALS: BP 155/77; TEMP 98.5; BMI 22.8
[2021-12-24 19:01] VITALS: PULSE 88
== END 2021-12-24 19:01 | disposition home or self-care (01) ==
LOC: JER 16:25
DX: U07.1 COVID-19 (principal)
CPT/HCPCS: 99284-25; M0222; Q0222

== ENCOUNTER 2022-02-28 02:04 | Inpatient (IN) | payer OTHER ==
[2022-02-28] MEDS ORDERED: ACETAMINOPHEN 1000 MG/100 ML BAG IVPB ONE (03:17)
[2022-02-28] MEDS ORDERED: LACTATED RINGERS SOLUTION 1000 ML INFUS.BAG IV ONE ×2 (03:38→13:53)
[2022-02-28] MEDS ORDERED: ACETAMINOPHEN INJECTION 100 ML IVPB ONE (03:39)
[2022-02-28 03:53] LABS: HEMATOCRIT 42.4 % (35.4-49); HEMOGLOBIN 14.2 GM/dL (11.7-16.9); MCH 30.3 pg (25.7-33.7); MCHC 33.4 g/dl (32.0-35.9); MEAN CELL VOLUME 90.8 fl (80-96); MEAN PLT VOLUME 9.5 fl (7.5-11.1); PLATELET COUNT 162 10^3/uL (134-434); RBC 4.67 M/mm3 (4.00-5.60); RDW 14.8 % (11.9-15.9); WHITE BLOOD COUNT 23.7 K/mm3 (4.0-10.0)
[2022-02-28 04:03] LABS: INR 1.15 (0.83-1.09); PROTHROMBIN TIME (PATIENT) 13.3 SEC (9.7-13.0)
[2022-02-28 04:05] LABS: ACTIVATED PTT 27.7 SECONDS (25.2-36.5)
[2022-02-28 04:32] LABS: BLOOD UREA NITROGEN 19.2 mg/dL (7-18)
[2022-02-28 04:35] LABS: CREATININE 1.7 mg/dL (0.55-1.3)
[2022-02-28 04:37] LABS: BILIRUBIN,TOTAL 1.8 mg/dL (0.2-1); TOT PROT 6.6 g/dl (6.4-8.2)
[2022-02-28] MEDS ORDERED: morphine CARPU-JECT 4 MG/1 ML DISP.SYRIN IVPUSH ONE (05:20)
[2022-02-28] MEDS ORDERED: morphine SULFATE 4 MG/ML VIAL ONE (05:21)
[2022-02-28] MEDS ORDERED: PIPERACILLIN/TAZOB 4.5 GM 4.5 GM in DEXTROSE 5%-WATER 100 ML IVPB ONE (05:28)
[2022-02-28] MEDS ORDERED: VANCOMYCIN 1 GM in D5W (PRE-DOCKED) 1,000 MG/250 ML IVPB ONE (05:30)
[2022-02-28 06:25] LABS: ANISOCYTOSIS 1+; MACROCYTOSIS 1+
[2022-02-28] MEDS ORDERED: PIPERACILLIN/TAZOB 4.5 GM 4.5 GM/100 ML BAG IVPB ONE (06:29)
[2022-02-28] MEDS ORDERED: VANCOMYCIN/WATER FOR INJ (PEG) 1,000 MG/200 ML BAG IVPB ONE (07:12)
[2022-02-28] MEDS ORDERED: MIDAZOLAM HCL 2 MG/2 ML SINGLE DOSE VIAL ONE (07:46)
[2022-02-28] MEDS ORDERED: PROPOFOL 60 ML ONE (07:46)
[2022-02-28] MEDS ORDERED: SUCCINYLCHOLINE CHLORIDE 200 MG/10 ML SYRINGE ONE ×2 (07:47→10:02)
[2022-02-28] MEDS ORDERED: ROCURONIUM BROMIDE 50 MG/5 ML SYRINGE ONE ×2 (07:47→10:01)
[2022-02-28] MEDS ORDERED: LACTATED RINGERS SOLUTION 1,000 ML IV SCH (08:00)
[2022-02-28] MEDS ORDERED: VANCOMYCIN 1,000 MG VIAL (RESTRICTED TO ID ONLY) IVPB ONE (08:10)
[2022-02-28] MEDS ORDERED: PHENYLEPHRINE HCL 10 MG/1 ML SINGLE DOSE VIAL ONE (08:24)
[2022-02-28] MEDS ORDERED: LIDOCAINE HCL/PF 2% SDV 5ML VIAL ONE (08:24)
[2022-02-28] MEDS ORDERED: VANCOMYCIN 1,000 MG VIAL (RESTRICTED TO ID ONLY) ONE (08:24)
[2022-02-28] MEDS ORDERED: DEXAMETHASONE SOD PHOSPHATE 4 MG/1 ML VIAL ONE (08:24)
[2022-02-28] MEDS ORDERED: GLYCOPYRROLATE 0.2 MG/1 ML VIAL ONE (08:24)
[2022-02-28] MEDS ORDERED: ONDANSETRON 4 MG/2 ML VIAL ONE (08:24)
[2022-02-28] MEDS ORDERED: NEOSTIGMINE METHYLSULFATE 0.5 MG/ML - 10 ML MDV ONE (08:24)
[2022-02-28] MEDS ORDERED: PROPOFOL 20 ML ONE (10:00)
[2022-02-28] MEDS ORDERED: BUPIVACAINE LIPOSOME/PF (EXPAREL) 266 MG/20 ML VIAL ONE (10:10)
[2022-02-28] MEDS ORDERED: BUPIVACAINE HCL/PF 0.25% (2.5MG/ML) 10 ML VIAL ONE (10:10)
[2022-02-28] MEDS ORDERED: BENZOIN/ALOE VERA/STORAX/TOLU 58 ML BOTTLE ONE (10:37)
[2022-02-28] MEDS ORDERED: HYDROmorphone *PCA* 10MG/50ML DISP.SYRIN ONE (11:17)
[2022-02-28] MEDS ORDERED: HYDROmorphone *PCA* 10MG/50ML DISP.SYRIN PCA SCH (11:30)
[2022-02-28] MEDS: ACETAMINOPHEN 1000 MG/100 ML BAG IVPB ONE (11:40)
[2022-02-28 13:22] LABS: HEMATOCRIT 40.9 % (35.4-49); HEMOGLOBIN 13.4 GM/dL (11.7-16.9); LYMPH % 46.3 % (8-40); MCH 29.7 pg (25.7-33.7); MCHC 32.8 g/dl (32.0-35.9); MEAN CELL VOLUME 90.6 fl (80-96); MEAN PLT VOLUME 9.9 fl (7.5-11.1); MONO % 3.2 % (3.8-10.2); NEUT % 50.5 % (42.8-82.8); PLATELET COUNT 125 10^3/uL (134-434); RBC 4.52 M/mm3 (4.00-5.60); RDW 14.7 % (11.9-15.9); WHITE BLOOD COUNT 17.7 K/mm3 (4.0-10.0)
[2022-02-28 14:15] LABS: CALCIUM 7.8 mg/dL (8.5-10.1)
[2022-02-28 14:19] LABS: CREATININE 1.4 mg/dL (0.55-1.3)
[2022-02-28] MEDS ORDERED: PIPERACILLIN/TAZOB 3.375 GM 3.375 GM in DEXTROSE 5%-WATER - 50 ML IVPB SCH ×4 (15:00→18:00)
[2022-02-28] MEDS: PANTOPRAZOLE SODIUM 40 MG VIAL IVPUSH SCH (15:05)
[2022-02-28] MEDS: PIPERACILLIN/TAZOB 3.375 GM 3.375 GM in DEXTROSE 5%-WATER - 50 ML IVPB SCH ×2 (15:06→18:15)
[2022-02-28] MEDS: LACTATED RINGERS SOLUTION 1,000 ML IV SCH (15:12)
[2022-02-28] MEDS: ONDANSETRON 4 MG/2 ML VIAL IVPUSH PRN (18:29)
[2022-02-28] MEDS: HEPARIN NA (PORCINE) 5,000 UNITS/ML 1ML VIAL SQ SCH (21:20)
[2022-02-28] MEDS: ACETAMINOPHEN 1000 MG/100 ML BAG IVPB SCH (21:21)
[2022-02-28] MEDS: MUPIROCIN 2% TOPICAL OINTMENT FOR DECOLONIZATION NS SCH (21:21)
[2022-02-28] MEDS: CHLORHEXIDINE GLUCONATE 4% CLEANSER FOR DECOLONIZATION TP SCH (21:22)
[2022-02-28] MEDS ORDERED: CHLORHEXIDINE GLUCONATE 4% CLEANSER FOR DECOLONIZATION TP SCH ×2 (22:00)
[2022-02-28] MEDS ORDERED: MUPIROCIN 2% TOPICAL OINTMENT FOR DECOLONIZATION NS SCH ×2 (22:00)
[2022-03-01] MEDS ORDERED: PIPERACILLIN/TAZOBACTAM 3.375 GM VIAL IVPB ONE ×2 (01:51→01:53)
[2022-03-01] MEDS: ONDANSETRON 4 MG/2 ML VIAL IVPUSH PRN (02:07)
[2022-03-01] MEDS: PIPERACILLIN/TAZOB 3.375 GM 3.375 GM in DEXTROSE 5%-WATER - 50 ML IVPB SCH ×3 (02:15→17:59)
[2022-03-01] MEDS: ACETAMINOPHEN 1000 MG/100 ML BAG IVPB SCH ×2 (03:33→11:39)
[2022-03-01] MEDS ORDERED: PROMETHAZINE HCL 25 MG/1 ML VIAL IVPUSH ONE (07:02)
[2022-03-01 07:09] LABS: BASO % 0.2 % (0-2.0); HEMATOCRIT 34.9 % (35.4-49); HEMOGLOBIN 11.9 GM/dL (11.7-16.9); LYMPH % 34.5 % (8-40); MCH 30.7 pg (25.7-33.7); MCHC 34.1 g/dl (32.0-35.9); MEAN PLT VOLUME 9.7 fl (7.5-11.1); MONO % 2.9 % (3.8-10.2); NEUT % 62.4 % (42.8-82.8); PLATELET COUNT 103 10^3/uL (134-434); RBC 3.87 M/mm3 (4.00-5.60); RDW 14.9 % (11.9-15.9); WHITE BLOOD COUNT 13.3 K/mm3 (4.0-10.0)
[2022-03-01 07:32] LABS: BLOOD UREA NITROGEN 20.6 mg/dL (7-18); CALCIUM 7.6 mg/dL (8.5-10.1)
[2022-03-01 07:33] LABS: MAGNESIUM 1.7 mg/dL (1.8-2.4)
[2022-03-01 07:36] LABS: BILIRUBIN,TOTAL 0.9 mg/dL (0.2-1); TOT PROT 4.6 g/dl (6.4-8.2)
[2022-03-01 07:37] LABS: CREATININE 1.4 mg/dL (0.55-1.3); PHOSPHOROUS 3.1 mg/dL (2.5-4.9)
[2022-03-01 07:39] LABS: ALBUMIN 2.5 g/dl (3.4-5.0)
[2022-03-01] MEDS ORDERED: MAGNESIUM SULF 50% (8.12 MEQ/2 ML-1 GM VIAL) IVPB ONE (09:05)
[2022-03-01] MEDS: PANTOPRAZOLE SODIUM 40 MG VIAL IVPUSH SCH (10:03)
[2022-03-01] MEDS: HEPARIN NA (PORCINE) 5,000 UNITS/ML 1ML VIAL SQ SCH ×2 (10:03→21:33)
[2022-03-01] MEDS: HYDROmorphone *PCA* 10MG/50ML DISP.SYRIN PCA SCH ×2 (12:46→20:05)
[2022-03-01] MEDS: LACTATED RINGERS SOLUTION 1,000 ML IV SCH ×2 (12:46→21:07)
[2022-03-01] MEDS: PROMETHAZINE HCL 25 MG/1 ML VIAL IVPUSH PRN ×2 (17:47→21:37)
[2022-03-01] MEDS: MUPIROCIN 2% TOPICAL OINTMENT FOR DECOLONIZATION NS SCH ×2 (18:16→21:34)
[2022-03-01] MEDS: ACETAMINOPHEN 1000 MG/100 ML BAG IVPB ONE (20:05)
[2022-03-01] MEDS: CHLORHEXIDINE GLUCONATE 4% CLEANSER FOR DECOLONIZATION TP SCH (21:34)
[2022-03-02] MEDS: PIPERACILLIN/TAZOB 3.375 GM 3.375 GM in DEXTROSE 5%-WATER - 50 ML IVPB SCH ×3 (02:24→17:37)
[2022-03-02 07:03] LABS: BASO % 0.3 % (0-2.0); HEMOGLOBIN 12.3 GM/dL (11.7-16.9); LYMPH % 30.8 % (8-40); MCH 31.1 pg (25.7-33.7); MCHC 34.2 g/dl (32.0-35.9); MEAN CELL VOLUME 91.1 fl (80-96); MEAN PLT VOLUME 9.1 fl (7.5-11.1); MONO % 3.6 % (3.8-10.2); NEUT % 64.3 % (42.8-82.8); PLATELET COUNT 102 10^3/uL (134-434); RBC 3.95 M/mm3 (4.00-5.60); RDW 14.9 % (11.9-15.9); WHITE BLOOD COUNT 9.9 K/mm3 (4.0-10.0)
[2022-03-02 07:24] LABS: CALCIUM 7.8 mg/dL (8.5-10.1)
[2022-03-02 07:25] LABS: ALBUMIN 2.2 g/dl (3.4-5.0); BLOOD UREA NITROGEN 16.5 mg/dL (7-18); MAGNESIUM 2.5 mg/dL (1.8-2.4)
[2022-03-02 07:27] LABS: CREATININE 1.3 mg/dL (0.55-1.3); PHOSPHOROUS 1.3 mg/dL (2.5-4.9)
[2022-03-02 07:29] LABS: BILIRUBIN,TOTAL 0.7 mg/dL (0.2-1); TOT PROT 4.5 g/dl (6.4-8.2)
[2022-03-02] MEDS ORDERED: POTASSIUM PHOSPHATE 30 MM in DEXTROSE 5%-WATER - 250 ML IVPB ONE (09:00)
[2022-03-02] MEDS: HYDROmorphone *PCA* 10MG/50ML DISP.SYRIN PCA SCH (09:04)
[2022-03-02] MEDS: PANTOPRAZOLE SODIUM 40 MG VIAL IVPUSH SCH (09:32)
[2022-03-02] MEDS: HEPARIN NA (PORCINE) 5,000 UNITS/ML 1ML VIAL SQ SCH ×2 (09:32→21:11)
[2022-03-02] MEDS: MUPIROCIN 2% TOPICAL OINTMENT FOR DECOLONIZATION NS SCH ×2 (09:33→21:11)
[2022-03-02] MEDS: LACTATED RINGERS SOLUTION 1,000 ML IV SCH ×3 (09:43→16:16)
[2022-03-02 12:56] VITALS: BMI 23.3
[2022-03-02] MEDS ORDERED: LISINOPRIL 10 MG TABLET PO ONE (18:18)
[2022-03-02] MEDS: CHLORHEXIDINE GLUCONATE 4% CLEANSER FOR DECOLONIZATION TP SCH (21:11)
[2022-03-02] MEDS: TIMOLOL 0.5% OPHTHALMIC SOL 5 ML BOTTLE OU SCH (21:11)
[2022-03-02] MEDS: BRIMONIDINE TARTRATE 0.1% OPHTHALMIC 5 ML BOTTLE OU SCH (21:12)
[2022-03-02] MEDS: PROMETHAZINE HCL 25 MG/1 ML VIAL IVPUSH PRN (21:25)
[2022-03-03] MEDS: PIPERACILLIN/TAZOB 3.375 GM 3.375 GM in DEXTROSE 5%-WATER - 50 ML IVPB SCH ×3 (02:17→17:38)
[2022-03-03] MEDS: LACTATED RINGERS SOLUTION 1,000 ML IV SCH ×2 (02:17→16:16)
[2022-03-03] MEDS: ONDANSETRON 4 MG/2 ML VIAL IVPUSH PRN ×3 (02:17→15:58)
[2022-03-03 07:36] LABS: BASO % 0.5 % (0-2.0); EOS % 1.5 % (0-4.5); HEMATOCRIT 34.1 % (35.4-49); HEMOGLOBIN 11.9 GM/dL (11.7-16.9); LYMPH % 26.9 % (8-40); MCH 31.5 pg (25.7-33.7); MCHC 34.9 g/dl (32.0-35.9); MEAN CELL VOLUME 90.2 fl (80-96); MEAN PLT VOLUME 8.5 fl (7.5-11.1); NEUT % 65.1 % (42.8-82.8); PLATELET COUNT 136 10^3/uL (134-434); RBC 3.78 M/mm3 (4.00-5.60); RDW 14.8 % (11.9-15.9); WHITE BLOOD COUNT 10.2 K/mm3 (4.0-10.0)
[2022-03-03 07:58] LABS: CALCIUM 7.6 mg/dL (8.5-10.1)
[2022-03-03 07:59] LABS: ALBUMIN 2.2 g/dl (3.4-5.0); MAGNESIUM 2.2 mg/dL (1.8-2.4)
[2022-03-03 08:03] LABS: BILIRUBIN,TOTAL 0.9 mg/dL (0.2-1); TOT PROT 4.3 g/dl (6.4-8.2)
[2022-03-03] MEDS: HEPARIN NA (PORCINE) 5,000 UNITS/ML 1ML VIAL SQ SCH ×2 (09:06→21:52)
[2022-03-03] MEDS: PANTOPRAZOLE SODIUM 40 MG VIAL IVPUSH SCH (09:06)
[2022-03-03] MEDS: LISINOPRIL 10 MG TABLET PO SCH (09:07)
[2022-03-03] MEDS: MUPIROCIN 2% TOPICAL OINTMENT FOR DECOLONIZATION NS SCH ×2 (09:15→21:53)
[2022-03-03] MEDS: BRIMONIDINE TARTRATE 0.1% OPHTHALMIC 5 ML BOTTLE OU SCH (09:16)
[2022-03-03] MEDS: TIMOLOL 0.5% OPHTHALMIC SOL 5 ML BOTTLE OU SCH ×2 (09:19→21:52)
[2022-03-03] MEDS ORDERED: oxyCODONE HCL 5 MG TABLET PO PRN (09:57)
[2022-03-03] MEDS ORDERED: POTASSIUM PHOSPHATE 30 MM in SODIUM CHLORIDE 250 ML IVPB ONE (12:37)
[2022-03-03] MEDS: oxyCODONE HCL 5 MG TABLET PO PRN ×2 (15:59→22:12)
[2022-03-03] MEDS: CHLORHEXIDINE GLUCONATE 4% CLEANSER FOR DECOLONIZATION TP SCH (21:52)
[2022-03-03] MEDS: PROMETHAZINE HCL 25 MG/1 ML VIAL IVPUSH PRN (22:12)
[2022-03-04] MEDS: PIPERACILLIN/TAZOB 3.375 GM 3.375 GM in DEXTROSE 5%-WATER - 50 ML IVPB SCH ×3 (02:24→17:11)
[2022-03-04 07:15] LABS: HEMATOCRIT 37.7 % (35.4-49); HEMOGLOBIN 12.5 GM/dL (11.7-16.9); MCH 30.1 pg (25.7-33.7); MCHC 33.2 g/dl (32.0-35.9); MEAN CELL VOLUME 90.7 fl (80-96); MEAN PLT VOLUME 8.7 fl (7.5-11.1); PLATELET COUNT 151 10^3/uL (134-434); RBC 4.15 M/mm3 (4.00-5.60); RDW 14.6 % (11.9-15.9); WHITE BLOOD COUNT 9.7 K/mm3 (4.0-10.0)
[2022-03-04] MEDS: HYDROmorphone *PCA* 10MG/50ML DISP.SYRIN PCA SCH (07:23)
[2022-03-04 07:31] LABS: CALCIUM 7.7 mg/dL (8.5-10.1)
[2022-03-04 07:32] LABS: ALBUMIN 2.2 g/dl (3.4-5.0); BLOOD UREA NITROGEN 16.3 mg/dL (7-18); MAGNESIUM 2.2 mg/dL (1.8-2.4)
[2022-03-04 07:36] LABS: BILIRUBIN,TOTAL 0.7 mg/dL (0.2-1); CREATININE 1.1 mg/dL (0.55-1.3); PHOSPHOROUS 2.2 mg/dL (2.5-4.9); TOT PROT 4.4 g/dl (6.4-8.2)
[2022-03-04] MEDS: oxyCODONE HCL 5 MG TABLET PO PRN (08:58)
[2022-03-04] MEDS: BRIMONIDINE TARTRATE 0.1% OPHTHALMIC 5 ML BOTTLE OU SCH (09:04)
[2022-03-04] MEDS: PANTOPRAZOLE SODIUM 40 MG VIAL IVPUSH SCH (09:05)
[2022-03-04] MEDS: HEPARIN NA (PORCINE) 5,000 UNITS/ML 1ML VIAL SQ SCH ×2 (09:05→21:59)
[2022-03-04] MEDS: MUPIROCIN 2% TOPICAL OINTMENT FOR DECOLONIZATION NS SCH ×2 (09:05→21:59)
[2022-03-04] MEDS: LISINOPRIL 10 MG TABLET PO SCH (09:05)
[2022-03-04] MEDS: TIMOLOL 0.5% OPHTHALMIC SOL 5 ML BOTTLE OU SCH ×2 (09:08→22:00)
[2022-03-04 09:36] LABS: ANISOCYTOSIS 0; MACROCYTOSIS 0
[2022-03-04] MEDS: MULTIVITAMINS (DAILY MVI) TABLET (FP) PO SCH (10:13)
[2022-03-04] MEDS: oxyCODONE HCL 5 MG TABLET PO SCH ×3 (13:04→21:58)
[2022-03-04] MEDS: ACETAMINOPHEN 325 MG TABLET (FP) PO SCH ×3 (13:48→21:59)
[2022-03-04] MEDS: NAPH,MB-DB/K PH,MBDB POWDER PACKET PO SCH ×2 (13:48→21:59)
[2022-03-04] MEDS: PROMETHAZINE HCL 25 MG/1 ML VIAL IVPUSH PRN (18:56)
[2022-03-04] MEDS: CHLORHEXIDINE GLUCONATE 4% CLEANSER FOR DECOLONIZATION TP SCH (21:59)
[2022-03-05] MEDS: ACETAMINOPHEN 325 MG TABLET (FP) PO SCH ×6 (01:17→20:20)
[2022-03-05] MEDS: oxyCODONE HCL 5 MG TABLET PO SCH ×6 (01:18→20:19)
[2022-03-05] MEDS: PIPERACILLIN/TAZOB 3.375 GM 3.375 GM in DEXTROSE 5%-WATER - 50 ML IVPB SCH ×3 (01:20→18:18)
[2022-03-05] MEDS: NAPH,MB-DB/K PH,MBDB POWDER PACKET PO SCH ×3 (06:49→22:23)
[2022-03-05] MEDS: PROMETHAZINE HCL 25 MG/1 ML VIAL IVPUSH PRN (07:01)
[2022-03-05 07:44] LABS: BLOOD UREA NITROGEN 14.2 mg/dL (7-18); CALCIUM 7.6 mg/dL (8.5-10.1); MAGNESIUM 2.2 mg/dL (1.8-2.4)
[2022-03-05 07:45] LABS: ALBUMIN 2.1 g/dl (3.4-5.0); BASO % 0.6 % (0-2.0); EOS % 2.8 % (0-4.5); HEMATOCRIT 36.2 % (35.4-49); LYMPH % 30.2 % (8-40); MCHC 33.3 g/dl (32.0-35.9); MEAN CELL VOLUME 90.1 fl (80-96); MEAN PLT VOLUME 8.3 fl (7.5-11.1); MONO % 8.8 % (3.8-10.2); NEUT % 57.6 % (42.8-82.8); PLATELET COUNT 172 10^3/uL (134-434); RBC 4.02 M/mm3 (4.00-5.60); RDW 14.4 % (11.9-15.9); WHITE BLOOD COUNT 8.9 K/mm3 (4.0-10.0)
[2022-03-05 07:47] LABS: CREATININE 1.1 mg/dL (0.55-1.3); PHOSPHOROUS 2.6 mg/dL (2.5-4.9)
[2022-03-05 07:49] LABS: BILIRUBIN,TOTAL 0.6 mg/dL (0.2-1); TOT PROT 4.2 g/dl (6.4-8.2)
[2022-03-05 08:44] LABS: ANISOCYTOSIS 0; MACROCYTOSIS 0
[2022-03-05 08:46] LABS: PLATELET ESTIMATE ADEQUATE
[2022-03-05] MEDS: MUPIROCIN 2% TOPICAL OINTMENT FOR DECOLONIZATION NS SCH (11:59)
[2022-03-05] MEDS: HEPARIN NA (PORCINE) 5,000 UNITS/ML 1ML VIAL SQ SCH ×2 (12:00→22:23)
[2022-03-05] MEDS: LISINOPRIL 10 MG TABLET PO SCH (12:01)
[2022-03-05] MEDS: PANTOPRAZOLE SODIUM 40 MG VIAL IVPUSH SCH (12:01)
[2022-03-05] MEDS: MULTIVITAMINS (DAILY MVI) TABLET (FP) PO SCH (12:01)
[2022-03-05] MEDS: TIMOLOL 0.5% OPHTHALMIC SOL 5 ML BOTTLE OU SCH ×2 (13:40→22:34)
[2022-03-05] MEDS: BRIMONIDINE TARTRATE 0.1% OPHTHALMIC 5 ML BOTTLE OU SCH (13:40)
[2022-03-05] MEDS ORDERED: PROMETHAZINE HCL 25 MG/1 ML VIAL IVPUSH PRN (19:38)
[2022-03-05] MEDS ORDERED: ONDANSETRON 4 MG/2 ML VIAL IVPUSH PRN (19:38)
[2022-03-06] MEDS: oxyCODONE HCL 5 MG TABLET PO SCH ×6 (01:26→22:43)
[2022-03-06] MEDS: ACETAMINOPHEN 325 MG TABLET (FP) PO SCH ×3 (01:27→19:27)
[2022-03-06] MEDS: PIPERACILLIN/TAZOB 3.375 GM 3.375 GM in DEXTROSE 5%-WATER - 50 ML IVPB SCH ×3 (02:29→17:21)
[2022-03-06] MEDS: NAPH,MB-DB/K PH,MBDB POWDER PACKET PO SCH ×3 (05:53→22:44)
[2022-03-06] MEDS: LISINOPRIL 10 MG TABLET PO SCH (10:41)
[2022-03-06] MEDS: PANTOPRAZOLE SODIUM 40 MG VIAL IVPUSH SCH (10:42)
[2022-03-06] MEDS: MULTIVITAMINS (DAILY MVI) TABLET (FP) PO SCH (10:42)
[2022-03-06] MEDS: HEPARIN NA (PORCINE) 5,000 UNITS/ML 1ML VIAL SQ SCH ×2 (10:42→22:44)
[2022-03-06] MEDS: TIMOLOL 0.5% OPHTHALMIC SOL 5 ML BOTTLE OU SCH ×2 (10:45→22:45)
[2022-03-06] MEDS: ACETAMINOPHEN 500 MG TABLET (FP) PO SCH ×3 (11:55→22:45)
[2022-03-06] MEDS ORDERED: ACETAMINOPHEN 500 MG TABLET (FP) PO PRN (12:00)
[2022-03-06] MEDS: BRIMONIDINE TARTRATE 0.1% OPHTHALMIC 5 ML BOTTLE OU SCH (15:56)
[2022-03-06] MEDS: MELATONIN 5 MG TABLETS PO SCH ×2 (21:09→22:44)
[2022-03-07] MEDS: oxyCODONE HCL 5 MG TABLET PO SCH ×6 (02:04→23:50)
[2022-03-07] MEDS: PIPERACILLIN/TAZOB 3.375 GM 3.375 GM in DEXTROSE 5%-WATER - 50 ML IVPB SCH ×3 (03:11→17:18)
[2022-03-07] MEDS: ACETAMINOPHEN 500 MG TABLET (FP) PO SCH ×4 (06:38→23:52)
[2022-03-07] MEDS: NAPH,MB-DB/K PH,MBDB POWDER PACKET PO SCH ×3 (06:39→23:51)
[2022-03-07 09:30] LABS: HEMATOCRIT 38.3 % (35.4-49); HEMOGLOBIN 12.8 GM/dL (11.7-16.9); MCH 30.1 pg (25.7-33.7); MCHC 33.3 g/dl (32.0-35.9); MEAN CELL VOLUME 90.2 fl (80-96); MEAN PLT VOLUME 8.1 fl (7.5-11.1); PLATELET COUNT 254 10^3/uL (134-434); RBC 4.25 M/mm3 (4.00-5.60); WHITE BLOOD COUNT 16.9 K/mm3 (4.0-10.0)
[2022-03-07] MEDS: MULTIVITAMINS (DAILY MVI) TABLET (FP) PO SCH (09:51)
[2022-03-07] MEDS: LISINOPRIL 10 MG TABLET PO SCH (09:51)
[2022-03-07] MEDS: PANTOPRAZOLE SODIUM 40 MG VIAL IVPUSH SCH (09:52)
[2022-03-07] MEDS: BRIMONIDINE TARTRATE 0.1% OPHTHALMIC 5 ML BOTTLE OU SCH (10:02)
[2022-03-07] MEDS: TIMOLOL 0.5% OPHTHALMIC SOL 5 ML BOTTLE OU SCH ×2 (10:03→23:51)
[2022-03-07] MEDS: HEPARIN NA (PORCINE) 5,000 UNITS/ML 1ML VIAL SQ SCH ×2 (10:03→23:51)
[2022-03-07 10:04] LABS: ALBUMIN 2.4 g/dl (3.4-5.0); BLOOD UREA NITROGEN 10.5 mg/dL (7-18); CALCIUM 7.9 mg/dL (8.5-10.1); MAGNESIUM 2.1 mg/dL (1.8-2.4)
[2022-03-07 10:07] LABS: CREATININE 0.9 mg/dL (0.55-1.3); PHOSPHOROUS 2.6 mg/dL (2.5-4.9)
[2022-03-07 10:08] LABS: BILIRUBIN,TOTAL 0.5 mg/dL (0.2-1); TOT PROT 4.8 g/dl (6.4-8.2)
[2022-03-07 11:27] LABS: ANISOCYTOSIS 0; MACROCYTOSIS 0
[2022-03-07] MEDS: MELATONIN 5 MG TABLETS PO SCH (23:51)
[2022-03-08] MEDS: oxyCODONE HCL 5 MG TABLET PO SCH ×5 (01:39→23:00)
[2022-03-08] MEDS: PIPERACILLIN/TAZOB 3.375 GM 3.375 GM in DEXTROSE 5%-WATER - 50 ML IVPB SCH ×3 (02:55→17:12)
[2022-03-08] MEDS: ACETAMINOPHEN 500 MG TABLET (FP) PO SCH ×3 (06:42→17:11)
[2022-03-08] MEDS: NAPH,MB-DB/K PH,MBDB POWDER PACKET PO SCH ×3 (06:42→21:20)
[2022-03-08] MEDS: MULTIVITAMINS (DAILY MVI) TABLET (FP) PO SCH (10:18)
[2022-03-08] MEDS: PANTOPRAZOLE SODIUM 40 MG VIAL IVPUSH SCH (10:18)
[2022-03-08] MEDS: LISINOPRIL 10 MG TABLET PO SCH (10:18)
[2022-03-08] MEDS: HEPARIN NA (PORCINE) 5,000 UNITS/ML 1ML VIAL SQ SCH ×2 (10:18→21:19)
[2022-03-08] MEDS: BRIMONIDINE TARTRATE 0.1% OPHTHALMIC 5 ML BOTTLE OU SCH (10:23)
[2022-03-08] MEDS: TIMOLOL 0.5% OPHTHALMIC SOL 5 ML BOTTLE OU SCH ×2 (10:23→21:20)
[2022-03-08 10:47] LABS: BASO % 0.6 % (0-2.0); EOS % 1.3 % (0-4.5); HEMATOCRIT 35.6 % (35.4-49); HEMOGLOBIN 11.9 GM/dL (11.7-16.9); LYMPH % 25.9 % (8-40); MCH 30.1 pg (25.7-33.7); MCHC 33.3 g/dl (32.0-35.9); MEAN CELL VOLUME 90.5 fl (80-96); MEAN PLT VOLUME 7.9 fl (7.5-11.1); NEUT % 68.2 % (42.8-82.8); PLATELET COUNT 275 10^3/uL (134-434); RBC 3.94 M/mm3 (4.00-5.60); RDW 15.4 % (11.9-15.9); WHITE BLOOD COUNT 16.5 K/mm3 (4.0-10.0)
[2022-03-08 11:08] LABS: BLOOD UREA NITROGEN 10.5 mg/dL (7-18)
[2022-03-08 11:09] LABS: ALBUMIN 2.2 g/dl (3.4-5.0); CALCIUM 7.6 mg/dL (8.5-10.1)
[2022-03-08 11:12] LABS: CREATININE 0.8 mg/dL (0.55-1.3)
[2022-03-08 11:13] LABS: BILIRUBIN,TOTAL 0.5 mg/dL (0.2-1); TOT PROT 4.3 g/dl (6.4-8.2)
[2022-03-08] MEDS: ONDANSETRON *ODT* 4 MG TABLET SL SCH ×2 (11:30→17:11)
[2022-03-08] MEDS: MELATONIN 5 MG TABLETS PO SCH (21:19)
[2022-03-09] MEDS: PIPERACILLIN/TAZOB 3.375 GM 3.375 GM in DEXTROSE 5%-WATER - 50 ML IVPB SCH ×3 (01:43→17:41)
[2022-03-09] MEDS: oxyCODONE HCL 5 MG TABLET PO SCH ×4 (05:21→17:45)
[2022-03-09] MEDS: NAPH,MB-DB/K PH,MBDB POWDER PACKET PO SCH ×3 (05:24→21:48)
[2022-03-09] MEDS: ACETAMINOPHEN 500 MG TABLET (FP) PO SCH ×5 (06:10→22:42)
[2022-03-09] MEDS: ONDANSETRON *ODT* 4 MG TABLET SL SCH (07:06)
[2022-03-09] MEDS ORDERED: SODIUM CHLORIDE NASAL SPRAY 44 ML BOTTLE NS PRN (08:06)
[2022-03-09] MEDS ORDERED: PIPERACILLIN/TAZOBACTAM 3.375 GM VIAL IVPB ONE (10:10)
[2022-03-09] MEDS: MULTIVITAMINS (DAILY MVI) TABLET (FP) PO SCH (10:16)
[2022-03-09] MEDS: PANTOPRAZOLE 40 MG TABLET PO SCH (10:16)
[2022-03-09] MEDS: LISINOPRIL 10 MG TABLET PO SCH (10:16)
[2022-03-09] MEDS: FLUTICASONE PROP 0.05% 16 GM NASAL SPRAY NS SCH (10:16)
[2022-03-09] MEDS: HEPARIN NA (PORCINE) 5,000 UNITS/ML 1ML VIAL SQ SCH ×2 (10:16→21:47)
[2022-03-09] MEDS: BRIMONIDINE TARTRATE 0.1% OPHTHALMIC 5 ML BOTTLE OU SCH (10:20)
[2022-03-09] MEDS: TIMOLOL 0.5% OPHTHALMIC SOL 5 ML BOTTLE OU SCH ×2 (10:20→21:48)
[2022-03-09] MEDS: ONDANSETRON 4 MG TABLET PO SCH ×3 (12:10→16:48)
[2022-03-09] MEDS ORDERED: ONDANSETRON 4 MG TABLET PO SCH (15:06)
[2022-03-09] MEDS ORDERED: SODIUM CHLORIDE 250 ML IV STA (18:51)
[2022-03-09] MEDS: MELATONIN 5 MG TABLETS PO SCH (21:47)
[2022-03-10] MEDS: oxyCODONE HCL 5 MG TABLET PO SCH ×5 (00:03→23:42)
[2022-03-10] MEDS: PIPERACILLIN/TAZOB 3.375 GM 3.375 GM in DEXTROSE 5%-WATER - 50 ML IVPB SCH ×2 (02:10→10:03)
[2022-03-10] MEDS: ACETAMINOPHEN 500 MG TABLET (FP) PO SCH ×4 (05:09→23:43)
[2022-03-10] MEDS: NAPH,MB-DB/K PH,MBDB POWDER PACKET PO SCH (06:22)
[2022-03-10] MEDS: ONDANSETRON 4 MG TABLET PO SCH ×3 (06:24→17:04)
[2022-03-10 09:51] LABS: HEMATOCRIT 39.3 % (35.4-49); HEMOGLOBIN 12.9 GM/dL (11.7-16.9); MCH 29.6 pg (25.7-33.7); MCHC 32.8 g/dl (32.0-35.9); MEAN CELL VOLUME 90.5 fl (80-96); MEAN PLT VOLUME 7.8 fl (7.5-11.1); PLATELET COUNT 377 10^3/uL (134-434); RBC 4.34 M/mm3 (4.00-5.60); RDW 15.3 % (11.9-15.9); WHITE BLOOD COUNT 17.1 K/mm3 (4.0-10.0)
[2022-03-10] MEDS: BRIMONIDINE TARTRATE 0.1% OPHTHALMIC 5 ML BOTTLE OU SCH (10:01)
[2022-03-10] MEDS: FLUTICASONE PROP 0.05% 16 GM NASAL SPRAY NS SCH (10:01)
[2022-03-10] MEDS: TIMOLOL 0.5% OPHTHALMIC SOL 5 ML BOTTLE OU SCH ×2 (10:02→23:42)
[2022-03-10] MEDS: MULTIVITAMINS (DAILY MVI) TABLET (FP) PO SCH (10:03)
[2022-03-10] MEDS: PANTOPRAZOLE 40 MG TABLET PO SCH (10:03)
[2022-03-10] MEDS: HEPARIN NA (PORCINE) 5,000 UNITS/ML 1ML VIAL SQ SCH ×2 (10:03→23:41)
[2022-03-10] MEDS: LISINOPRIL 10 MG TABLET PO SCH (10:03)
[2022-03-10 10:50] LABS: CALCIUM 8.3 mg/dL (8.5-10.1)
[2022-03-10 10:51] LABS: MAGNESIUM 2.3 mg/dL (1.8-2.4)
[2022-03-10 10:52] LABS: BLOOD UREA NITROGEN 9.7 mg/dL (7-18)
[2022-03-10 10:54] LABS: CREATININE 1.1 mg/dL (0.55-1.3)
[2022-03-10 10:56] LABS: BILIRUBIN,TOTAL 0.5 mg/dL (0.2-1)
[2022-03-10 10:57] LABS: ALBUMIN 2.7 g/dl (3.4-5.0)
[2022-03-10 12:14] LABS: ANISOCYTOSIS 2+; MACROCYTOSIS 0; OVALOCYTE 2+
[2022-03-10 12:50] LABS: URINE APPEARANCE CLEAR; URINE BILIRUBIN NEGATIVE (NEGATIVE); URINE COLOR YELLOW; URINE GLUCOSE (UA) NEGATIVE (NEGATIVE); URINE KETONE TRACE (NEGATIVE); URINE LEUK ESTERASE NEGATIVE (NEGATIVE); URINE NITRITE NEGATIVE (NEGATIVE); URINE PROTEIN TRACE (NEGATIVE); URINE UROBILINOGEN 0.2 mg/dL (0.2-1.0)
[2022-03-10] MEDS: MELATONIN 5 MG TABLETS PO SCH (23:41)
[2022-03-11] MEDS: ONDANSETRON 4 MG TABLET PO SCH ×3 (06:46→16:58)
[2022-03-11] MEDS: ACETAMINOPHEN 500 MG TABLET (FP) PO SCH ×4 (06:46→22:45)
[2022-03-11] MEDS: oxyCODONE HCL 5 MG TABLET PO SCH ×4 (06:47→23:00)
[2022-03-11] MEDS: MULTIVITAMINS (DAILY MVI) TABLET (FP) PO SCH (09:32)
[2022-03-11] MEDS: PANTOPRAZOLE 40 MG TABLET PO SCH (09:32)
[2022-03-11] MEDS: HEPARIN NA (PORCINE) 5,000 UNITS/ML 1ML VIAL SQ SCH ×2 (09:32→21:12)
[2022-03-11] MEDS: LISINOPRIL 10 MG TABLET PO SCH (09:32)
[2022-03-11 09:36] LABS: HEMATOCRIT 37.8 % (35.4-49); HEMOGLOBIN 12.9 GM/dL (11.7-16.9); MCH 30.9 pg (25.7-33.7); MEAN CELL VOLUME 90.9 fl (80-96); MEAN PLT VOLUME 7.6 fl (7.5-11.1); PLATELET COUNT 350 10^3/uL (134-434); RBC 4.16 M/mm3 (4.00-5.60); RDW 15.3 % (11.9-15.9); WHITE BLOOD COUNT 14.3 K/mm3 (4.0-10.0)
[2022-03-11] MEDS: TIMOLOL 0.5% OPHTHALMIC SOL 5 ML BOTTLE OU SCH ×2 (09:36→21:12)
[2022-03-11] MEDS: FLUTICASONE PROP 0.05% 16 GM NASAL SPRAY NS SCH (09:37)
[2022-03-11] MEDS: BRIMONIDINE TARTRATE 0.1% OPHTHALMIC 5 ML BOTTLE OU SCH (09:37)
[2022-03-11 09:52] LABS: CALCIUM 8.3 mg/dL (8.5-10.1)
[2022-03-11 09:53] LABS: ALBUMIN 2.6 g/dl (3.4-5.0); MAGNESIUM 2.2 mg/dL (1.8-2.4)
[2022-03-11 09:56] LABS: BILIRUBIN,TOTAL 0.4 mg/dL (0.2-1); PHOSPHOROUS 2.8 mg/dL (2.5-4.9); TOT PROT 5.2 g/dl (6.4-8.2)
[2022-03-11 10:41] LABS: ANISOCYTOSIS 1+; MACROCYTOSIS 0
[2022-03-11] MEDS: MELATONIN 5 MG TABLETS PO SCH (21:12)
[2022-03-12] MEDS: ACETAMINOPHEN 500 MG TABLET (FP) PO SCH ×2 (04:37→11:33)
[2022-03-12] MEDS: oxyCODONE HCL 5 MG TABLET PO SCH ×2 (05:14→11:32)
[2022-03-12] MEDS: ONDANSETRON 4 MG TABLET PO SCH ×2 (06:56→11:33)
[2022-03-12 08:48] LABS: HEMATOCRIT 37.7 % (35.4-49); HEMOGLOBIN 12.3 GM/dL (11.7-16.9); MCH 29.6 pg (25.7-33.7); MCHC 32.6 g/dl (32.0-35.9); MEAN CELL VOLUME 90.9 fl (80-96); MEAN PLT VOLUME 7.7 fl (7.5-11.1); PLATELET COUNT 404 10^3/uL (134-434); RBC 4.15 M/mm3 (4.00-5.60); RDW 15.6 % (11.9-15.9); WHITE BLOOD COUNT 12.7 K/mm3 (4.0-10.0)
[2022-03-12 09:17] LABS: ALBUMIN 2.6 g/dl (3.4-5.0)
[2022-03-12 09:18] LABS: BLOOD UREA NITROGEN 9.7 mg/dL (7-18); CALCIUM 8.4 mg/dL (8.5-10.1)
[2022-03-12 09:20] LABS: MAGNESIUM 2.1 mg/dL (1.8-2.4)
[2022-03-12 09:21] LABS: BILIRUBIN,TOTAL 0.4 mg/dL (0.2-1)
[2022-03-12 09:22] LABS: TOT PROT 5.1 g/dl (6.4-8.2)
[2022-03-12] MEDS: MULTIVITAMINS (DAILY MVI) TABLET (FP) PO SCH (09:41)
[2022-03-12] MEDS: LISINOPRIL 10 MG TABLET PO SCH (09:41)
[2022-03-12] MEDS: PANTOPRAZOLE 40 MG TABLET PO SCH (09:41)
[2022-03-12] MEDS: HEPARIN NA (PORCINE) 5,000 UNITS/ML 1ML VIAL SQ SCH (09:41)
[2022-03-12] MEDS: BRIMONIDINE TARTRATE 0.1% OPHTHALMIC 5 ML BOTTLE OU SCH (09:43)
[2022-03-12] MEDS: FLUTICASONE PROP 0.05% 16 GM NASAL SPRAY NS SCH (09:43)
[2022-03-12] MEDS: TIMOLOL 0.5% OPHTHALMIC SOL 5 ML BOTTLE OU SCH (09:44)
[2022-03-12 12:19] LABS: ANISOCYTOSIS 0; MACROCYTOSIS 0; OVALOCYTE 0; PLATELET ESTIMATE NORMAL
[2022-03-12 15:53] VITALS: BP 119/60; PULSE 74; RESP 20; TEMP 98.7
== END 2022-03-12 16:37 | disposition home health service (06) | DRG 853 ==
LOC: JER 02:04 → JERBED 11:31 → JICU 14:42 → J8W 03-05 09:44
PROVIDERS: ADMIT Internal Medicine; ATTEND Nurse Practitioner Acute Care
PROC: 0D1N074 Bypass Sigmoid Colon to Cutaneous with Autologous Tissue Substitute, Open Approach (ICD-10-PCS; 2022-02-28)
PROC: 0DBN0ZZ Excision of Sigmoid Colon, Open Approach (ICD-10-PCS; principal; 2022-02-28 13:00)
DX: A41.9 Sepsis, unspecified organism (principal); K65.9 Peritonitis, unspecified; C91.10 Chronic lymphocytic leukemia of B-cell type not having achieved remission; N17.9 Acute kidney failure, unspecified; E87.1 Hypo-osmolality and hyponatremia; K57.20 Diverticulitis of large intestine with perforation and abscess without bleeding; I10 Essential (primary) hypertension; D69.6 Thrombocytopenia, unspecified; E78.5 Hyperlipidemia, unspecified; G89.18 Other acute postprocedural pain; R63.0 Anorexia; R11.0 Nausea; D72.829 Elevated white blood cell count, unspecified; R10.9 Unspecified abdominal pain
CPT/HCPCS: 36415; 71045-TC-FY; 74176-TC; 80048; 80053; 81003; 83605; 83690; 83735; 84100; 84484; 85025; 85610; 85730; 86850; 86900; 86901; 87040; 87086; 88307-TC; 93005; 93010; 94010; 94760; 97116-GP; 97161-GP; 99285-25; C9803-CS; J1644; Q0162; U0003; U0005

== ENCOUNTER 2022-08-08 04:09 | Inpatient (IN) | payer OTHER ==
[2022-08-04 15:28] VITALS: BMI 23.8
[2022-08-08] MEDS ORDERED: ERTAPENEM SODIUM 1 GM VIAL ONE (06:56)
[2022-08-08] MEDS ORDERED: ALVIMOPAN 12 MG CAP PO ONE (07:00)
[2022-08-08] MEDS ORDERED: ALVIMOPAN 12 MG CAP PO SCH (07:00)
[2022-08-08] MEDS ORDERED: ERTAPENEM SODIUM 1 GM in SODIUM CHLORIDE 50 ML IVPB ONE (07:00)
[2022-08-08] MEDS ORDERED: ROCURONIUM BROMIDE 50 MG/5 ML SYRINGE ONE ×2 (07:35→10:51)
[2022-08-08] MEDS ORDERED: PROPOFOL 20 ML ONE (07:35)
[2022-08-08] MEDS ORDERED: MIDAZOLAM HCL 2 MG/2 ML SINGLE DOSE VIAL ONE ×2 (07:35→07:49)
[2022-08-08] MEDS ORDERED: LIDOCAINE HCL/PF 2% SDV 5ML VIAL ONE (07:35)
[2022-08-08] MEDS ORDERED: ONDANSETRON 4 MG/2 ML VIAL ONE (07:35)
[2022-08-08] MEDS ORDERED: DEXAMETHASONE SOD PHOSPHATE 4 MG/1 ML VIAL ONE (07:35)
[2022-08-08] MEDS ORDERED: BUPIVACAINE HCL/PF 0.5% (5MG/ML) 10 ML VIAL ONE (07:52)
[2022-08-08] MEDS ORDERED: BUPIVACAINE LIPOSOME/PF (EXPAREL) 266 MG/20 ML VIAL ONE (07:52)
[2022-08-08] MEDS ORDERED: ERTAPENEM SODIUM 1 GM VIAL IVPB ONE (08:25)
[2022-08-08] MEDS ORDERED: ONDANSETRON 4 MG/2 ML VIAL IVPUSH PRN ×4 (08:50→16:08)
[2022-08-08] MEDS ORDERED: HYDROmorphone HCl 2 MG/ML VIAL ONE (08:55)
[2022-08-08] MEDS ORDERED: SEVOFLURANE 250 ML BTL ONE (10:04)
[2022-08-08] MEDS ORDERED: GLYCOPYRROLATE 0.2 MG/1 ML VIAL ONE (15:00)
[2022-08-08] MEDS ORDERED: NEOSTIGMINE METHYLSULFATE 0.5 MG/1 ML - 10 ML MDV ONE (15:00)
[2022-08-08] MEDS ORDERED: DEXTROSE 5%-0.45% SALINE 1,000 ML IV SCH (16:00)
[2022-08-08] MEDS: LACTATED RINGERS SOLUTION 1,000 ML IV SCH (18:12)
[2022-08-08] MEDS: ACETAMINOPHEN 1000 MG/100 ML BAG IVPB SCH ×2 (18:16→22:34)
[2022-08-08] MEDS: TIMOLOL 0.5% OPHTHALMIC SOL 5 ML BOTTLE OU SCH (21:29)
[2022-08-08] MEDS: DORZOLAMIDE 2% HCL OPHTHALMIC SOLUTION 10 ML BOTTLE OU SCH (21:29)
[2022-08-08] MEDS: LATANOPROST 0.005% OPHTH SOLN 2.5ML BOTTLE OU SCH (21:30)
[2022-08-08] MEDS: HEPARIN NA (PORCINE) 5,000 UNITS/ML 1ML VIAL SQ SCH (21:32)
[2022-08-08] MEDS: BRIMONIDINE TARTRATE 0.1% OPHTHALMIC 5 ML BOTTLE OU SCH (22:12)
[2022-08-08] MEDS: FAMOTIDINE 20 MG TABLET PO SCH (22:33)
[2022-08-09] MEDS: ACETAMINOPHEN 1000 MG/100 ML BAG IVPB SCH ×4 (04:23→21:47)
[2022-08-09] MEDS: morphine SULFATE 4 MG/ML VIAL IVPUSH PRN ×2 (06:44→16:04)
[2022-08-09] MEDS: LISINOPRIL 10 MG TABLET PO SCH (09:21)
[2022-08-09] MEDS: TIMOLOL 0.5% OPHTHALMIC SOL 5 ML BOTTLE OU SCH (09:21)
[2022-08-09] MEDS: FEBUXOSTAT 40 MG TAB PO SCH (09:21)
[2022-08-09] MEDS: ALVIMOPAN 12 MG CAP PO SCH ×2 (09:21→21:36)
[2022-08-09] MEDS: FAMOTIDINE 20 MG TABLET PO SCH (09:21)
[2022-08-09] MEDS: HEPARIN NA (PORCINE) 5,000 UNITS/ML 1ML VIAL SQ SCH (09:21)
[2022-08-09] MEDS: BRIMONIDINE TARTRATE 0.1% OPHTHALMIC 5 ML BOTTLE OU SCH (09:25)
[2022-08-09] MEDS: DORZOLAMIDE 2% HCL OPHTHALMIC SOLUTION 10 ML BOTTLE OU SCH (09:26)
[2022-08-09] MEDS ORDERED: HYDROCHLOROTHIAZIDE 12.5 MG CAPSULE (FP) PO SCH (10:00)
[2022-08-09] MEDS ORDERED: PATIENT'S OWN MEDICATION (NON-FORMULARY) (Dorzolamide Hcl/Timolol Maleat [Cosopt Eye Drops OP SCH (10:00)
[2022-08-09] MEDS ORDERED: PATIENT'S OWN MEDICATION (NON-FORMULARY) (Lisinopril/Hydrochlorothiazide [Lisinopril-Hctz PO SCH (10:00)
[2022-08-09] MEDS: TIMOLOL 0.5% OPHTHALMIC SOL 5 ML BOTTLE OD SCH ×2 (10:19→21:38)
[2022-08-09] MEDS: BRIMONIDINE TARTRATE 0.1% OPHTHALMIC 5 ML BOTTLE OD SCH ×2 (10:19→21:34)
[2022-08-09] MEDS: LACTATED RINGERS SOLUTION 1,000 ML IV SCH (10:24)
[2022-08-09 10:44] LABS: HEMOGLOBIN 11.9 GM/dL (11.7-16.9); MCH 30.4 pg (25.7-33.7); MEAN CELL VOLUME 89.4 fl (80-96); MEAN PLT VOLUME 9.1 fl (7.5-11.1); PLATELET COUNT 137 10^3/uL (134-434); RBC 3.92 M/mm3 (4.00-5.60); WHITE BLOOD COUNT 17.3 K/mm3 (4.0-10.0)
[2022-08-09 11:08] LABS: BLOOD UREA NITROGEN 20.1 mg/dL (7-18); CALCIUM 7.8 mg/dL (8.5-10.1)
[2022-08-09 11:12] LABS: CREATININE 1.2 mg/dL (0.55-1.3); PHOSPHOROUS 3.3 mg/dL (2.5-4.9)
[2022-08-09] MEDS: FLUTICASONE PROP 0.05% 16 GM NASAL SPRAY NS SCH (12:43)
[2022-08-09] MEDS ORDERED: DEXTROSE 5%-LACTATED RINGERS 1,000 ML with POTASSIUM CHLORIDE 20 MEQ IV SCH ×2 (14:00)
[2022-08-09] MEDS ORDERED: HEPARIN NA (PORCINE) 5,000 UNITS/ML 1ML VIAL SQ SCH (14:00)
[2022-08-09] MEDS: D5-LR+20 MEQ KCL - 20 MEQ/1,000 ML INFUS.BAG IV SCH (16:54)
[2022-08-09] MEDS: ATORVASTATIN CA 80 MG TABLET (FP) PO SCH (21:36)
[2022-08-09] MEDS: LATANOPROST 0.005% OPHTH SOLN 2.5ML BOTTLE OU SCH (21:42)
[2022-08-10] MEDS: morphine SULFATE 4 MG/ML VIAL IVPUSH PRN ×3 (01:26→12:39)
[2022-08-10] MEDS: D5-LR+20 MEQ KCL - 20 MEQ/1,000 ML INFUS.BAG IV SCH ×3 (01:32→21:44)
[2022-08-10 10:24] LABS: HEMATOCRIT 37.2 % (35.4-49); HEMOGLOBIN 12.7 GM/dL (11.7-16.9); MCH 30.5 pg (25.7-33.7); MCHC 34.2 g/dl (32.0-35.9); MEAN CELL VOLUME 89.2 fl (80-96); MEAN PLT VOLUME 8.2 fl (7.5-11.1); PLATELET COUNT 145 10^3/uL (134-434); RBC 4.17 M/mm3 (4.00-5.60); RDW 15.4 % (11.9-15.9); WHITE BLOOD COUNT 17.8 K/mm3 (4.0-10.0)
[2022-08-10 10:47] LABS: CALCIUM 8.5 mg/dL (8.5-10.1)
[2022-08-10 10:48] LABS: ALBUMIN 3.5 g/dl (3.4-5.0); BLOOD UREA NITROGEN 13.1 mg/dL (7-18); MAGNESIUM 2.2 mg/dL (1.8-2.4)
[2022-08-10 10:52] LABS: CREATININE 1.2 mg/dL (0.55-1.3); PHOSPHOROUS 1.6 mg/dL (2.5-4.9)
[2022-08-10 10:53] LABS: BILIRUBIN,TOTAL 1.2 mg/dL (0.2-1); TOT PROT 5.7 g/dl (6.4-8.2)
[2022-08-10] MEDS: LISINOPRIL 10 MG TABLET PO SCH (11:14)
[2022-08-10] MEDS: ENOXAPARIN NA (PORCINE) 40 MG/0.4 ML DISP.SYRIN SQ SCH (11:14)
[2022-08-10] MEDS: FAMOTIDINE 20 MG TABLET PO SCH (11:14)
[2022-08-10] MEDS: BRIMONIDINE TARTRATE 0.1% OPHTHALMIC 5 ML BOTTLE OD SCH ×2 (11:15→21:46)
[2022-08-10] MEDS: FEBUXOSTAT 40 MG TAB PO SCH (11:16)
[2022-08-10] MEDS: FLUTICASONE PROP 0.05% 16 GM NASAL SPRAY NS SCH (11:16)
[2022-08-10] MEDS: TIMOLOL 0.5% OPHTHALMIC SOL 5 ML BOTTLE OD SCH ×2 (11:16→21:48)
[2022-08-10] MEDS: ALVIMOPAN 12 MG CAP PO SCH ×2 (11:16→21:44)
[2022-08-10] MEDS: ATORVASTATIN CA 80 MG TABLET (FP) PO SCH (21:44)
[2022-08-10] MEDS: LATANOPROST 0.005% OPHTH SOLN 2.5ML BOTTLE OU SCH (21:47)
[2022-08-11] MEDS: D5-LR+20 MEQ KCL - 20 MEQ/1,000 ML INFUS.BAG IV SCH ×2 (00:48→23:31)
[2022-08-11] MEDS: FAMOTIDINE 20 MG TABLET PO SCH (09:52)
[2022-08-11] MEDS: ENOXAPARIN NA (PORCINE) 40 MG/0.4 ML DISP.SYRIN SQ SCH (09:52)
[2022-08-11] MEDS: LISINOPRIL 10 MG TABLET PO SCH (09:52)
[2022-08-11] MEDS: ALVIMOPAN 12 MG CAP PO SCH (09:52)
[2022-08-11] MEDS: FEBUXOSTAT 40 MG TAB PO SCH (09:52)
[2022-08-11] MEDS: FLUTICASONE PROP 0.05% 16 GM NASAL SPRAY NS SCH (09:53)
[2022-08-11] MEDS: TIMOLOL 0.5% OPHTHALMIC SOL 5 ML BOTTLE OD SCH ×2 (09:53→22:29)
[2022-08-11] MEDS: BRIMONIDINE TARTRATE 0.1% OPHTHALMIC 5 ML BOTTLE OD SCH ×2 (10:21→22:28)
[2022-08-11] MEDS ORDERED: PANTOPRAZOLE SODIUM 40 MG VIAL IVPUSH SCH (12:45)
[2022-08-11] MEDS ORDERED: oxyCODONE HCL 5 MG TABLET PO PRN (13:55)
[2022-08-11] MEDS ORDERED: ACETAMINOPHEN 500 MG TABLET (FP) PO PRN (13:57)
[2022-08-11] MEDS ORDERED: ONDANSETRON *ODT* 4 MG TABLET SL PRN (13:58)
[2022-08-11] MEDS: oxyCODONE HCL 5 MG TABLET PO PRN ×2 (14:34→23:30)
[2022-08-11 16:20] LABS: HEMATOCRIT 30.8 % (35.4-49); HEMOGLOBIN 10.5 GM/dL (11.7-16.9); MCH 30.5 pg (25.7-33.7); MCHC 34.1 g/dl (32.0-35.9); MEAN CELL VOLUME 89.5 fl (80-96); MEAN PLT VOLUME 8.5 fl (7.5-11.1); PLATELET COUNT 125 10^3/uL (134-434); RBC 3.45 M/mm3 (4.00-5.60); RDW 15.1 % (11.9-15.9); WHITE BLOOD COUNT 13.3 K/mm3 (4.0-10.0)
[2022-08-11 16:47] LABS: ALBUMIN 2.9 g/dl (3.4-5.0); BLOOD UREA NITROGEN 9.3 mg/dL (7-18); MAGNESIUM 2.1 mg/dL (1.8-2.4)
[2022-08-11 16:50] LABS: CREATININE 1.1 mg/dL (0.55-1.3)
[2022-08-11 16:52] LABS: BILIRUBIN,TOTAL 0.9 mg/dL (0.2-1); TOT PROT 4.9 g/dl (6.4-8.2)
[2022-08-11 18:31] LABS: ANISOCYTOSIS 0; MACROCYTOSIS 0; PLATELET ESTIMATE NORMAL
[2022-08-11] MEDS: LATANOPROST 0.005% OPHTH SOLN 2.5ML BOTTLE OU SCH (22:29)
[2022-08-11] MEDS: PANTOPRAZOLE 40 MG TABLET PO SCH (22:30)
[2022-08-11] MEDS: ATORVASTATIN CA 80 MG TABLET (FP) PO SCH (22:30)
[2022-08-12 09:30] LABS: HEMATOCRIT 34.6 % (35.4-49); HEMOGLOBIN 11.8 GM/dL (11.7-16.9); MCH 30.4 pg (25.7-33.7); MCHC 34.2 g/dl (32.0-35.9); MEAN CELL VOLUME 88.9 fl (80-96); MEAN PLT VOLUME 8.8 fl (7.5-11.1); PLATELET COUNT 175 10^3/uL (134-434); RBC 3.89 M/mm3 (4.00-5.60); WHITE BLOOD COUNT 14.6 K/mm3 (4.0-10.0)
[2022-08-12] MEDS: LISINOPRIL 10 MG TABLET PO SCH (09:32)
[2022-08-12] MEDS: FEBUXOSTAT 40 MG TAB PO SCH (09:32)
[2022-08-12] MEDS: PANTOPRAZOLE 40 MG TABLET PO SCH ×2 (09:32→22:17)
[2022-08-12] MEDS: ENOXAPARIN NA (PORCINE) 40 MG/0.4 ML DISP.SYRIN SQ SCH (09:33)
[2022-08-12] MEDS: TIMOLOL 0.5% OPHTHALMIC SOL 5 ML BOTTLE OD SCH ×2 (09:37→22:18)
[2022-08-12] MEDS: BRIMONIDINE TARTRATE 0.1% OPHTHALMIC 5 ML BOTTLE OD SCH ×2 (09:39→22:18)
[2022-08-12] MEDS: FLUTICASONE PROP 0.05% 16 GM NASAL SPRAY NS SCH (09:39)
[2022-08-12 09:48] LABS: BLOOD UREA NITROGEN 8.1 mg/dL (7-18); CALCIUM 8.3 mg/dL (8.5-10.1)
[2022-08-12 09:49] LABS: ALBUMIN 3.1 g/dl (3.4-5.0)
[2022-08-12 09:51] LABS: PHOSPHOROUS 2.7 mg/dL (2.5-4.9)
[2022-08-12 09:52] LABS: CREATININE 1.1 mg/dL (0.55-1.3)
[2022-08-12 09:53] LABS: BILIRUBIN,TOTAL 1.1 mg/dL (0.2-1)
[2022-08-12 09:54] LABS: TOT PROT 5.4 g/dl (6.4-8.2)
[2022-08-12 10:29] LABS: ANISOCYTOSIS 0; MACROCYTOSIS 0
[2022-08-12] MEDS: oxyCODONE HCL 5 MG TABLET PO PRN ×2 (15:07→22:18)
[2022-08-12] MEDS: ATORVASTATIN CA 80 MG TABLET (FP) PO SCH (22:17)
[2022-08-12] MEDS: LATANOPROST 0.005% OPHTH SOLN 2.5ML BOTTLE OU SCH (22:18)
[2022-08-13 09:29] LABS: HEMATOCRIT 35.7 % (35.4-49); HEMOGLOBIN 12.2 GM/dL (11.7-16.9); MCH 30.5 pg (25.7-33.7); MEAN CELL VOLUME 89.6 fl (80-96); PLATELET COUNT 195 10^3/uL (134-434); RBC 3.99 M/mm3 (4.00-5.60); RDW 15.3 % (11.9-15.9); WHITE BLOOD COUNT 13.1 K/mm3 (4.0-10.0)
[2022-08-13] MEDS: ENOXAPARIN NA (PORCINE) 40 MG/0.4 ML DISP.SYRIN SQ SCH (09:34)
[2022-08-13] MEDS: oxyCODONE HCL 5 MG TABLET PO PRN (09:34)
[2022-08-13] MEDS: LISINOPRIL 10 MG TABLET PO SCH (09:35)
[2022-08-13] MEDS: PANTOPRAZOLE 40 MG TABLET PO SCH (09:35)
[2022-08-13] MEDS: FEBUXOSTAT 40 MG TAB PO SCH (09:35)
[2022-08-13] MEDS: FLUTICASONE PROP 0.05% 16 GM NASAL SPRAY NS SCH (09:38)
[2022-08-13] MEDS: TIMOLOL 0.5% OPHTHALMIC SOL 5 ML BOTTLE OD SCH (09:39)
[2022-08-13] MEDS: BRIMONIDINE TARTRATE 0.1% OPHTHALMIC 5 ML BOTTLE OD SCH (09:39)
[2022-08-13 09:50] LABS: ALBUMIN 3.3 g/dl (3.4-5.0); CALCIUM 8.6 mg/dL (8.5-10.1)
[2022-08-13 09:51] LABS: BLOOD UREA NITROGEN 9.7 mg/dL (7-18); MAGNESIUM 2.2 mg/dL (1.8-2.4)
[2022-08-13 09:53] LABS: CREATININE 1.2 mg/dL (0.55-1.3); PHOSPHOROUS 2.9 mg/dL (2.5-4.9)
[2022-08-13 09:55] LABS: BILIRUBIN,TOTAL 1.1 mg/dL (0.2-1); TOT PROT 5.6 g/dl (6.4-8.2)
[2022-08-13 10:40] LABS: ANISOCYTOSIS 0; MACROCYTOSIS 0
[2022-08-13 11:25] VITALS: BP 145/65; PULSE 70; RESP 18; TEMP 98.2
== END 2022-08-13 15:33 | disposition home or self-care (01) | DRG 333 ==
LOC: J2C 04:09 → J8W 17:27
PROVIDERS: ADMIT Surgery; ATTEND Nurse Practitioner Acute Care
PROC: 0DNN0ZZ Release Sigmoid Colon, Open Approach (ICD-10-PCS; 2022-08-08)
PROC: 0DJD8ZZ Inspection of Lower Intestinal Tract, Via Natural or Artificial Opening Endoscopic (ICD-10-PCS; 2022-08-08)
PROC: 0DBP0ZZ Excision of Rectum, Open Approach (ICD-10-PCS; principal; 2022-08-08 08:00)
PROC: 0DSN0ZZ Reposition Sigmoid Colon, Open Approach (ICD-10-PCS; 2022-08-08 08:00)
DX: Z43.3 Encounter for attention to colostomy (principal); C91.10 Chronic lymphocytic leukemia of B-cell type not having achieved remission; E78.5 Hyperlipidemia, unspecified; N18.9 Chronic kidney disease, unspecified; H40.9 Unspecified glaucoma; I12.9 Hypertensive chronic kidney disease with stage 1 through stage 4 chronic kidney disease, or unspecified chronic kidney disease; K64.8 Other hemorrhoids
CPT/HCPCS: 36415; 80048; 80053; 83735; 84100; 85025; 85027; 86140; 86850; 86900; 86901; 86922; 88307-TC; 94010; 94760; 97116-GP; 97162-GP; J1644

== ENCOUNTER 2023-07-17 18:41 | Emergency (ER) | payer OTHER ==
[2023-07-17 18:49] VITALS: BP 157/57; PULSE 68; RESP 18; TEMP 97.4; BMI 24.2
[2023-07-17] MEDS ORDERED: ACETAMINOPHEN 325 MG TABLET (FP) PO ONE (19:49)
[2023-07-17] MEDS ORDERED: LIDOCAINE 5% TOPICAL PATCH TP ONE (19:53)
[2023-07-17] MEDS ORDERED: ACETAMINOPHEN 325 MG TABLET (FP) ONE (20:05)
[2023-07-17] MEDS ORDERED: LIDOCAINE 4% PATCH TP ONE (20:06)
[2023-07-17] MEDS ORDERED: LIDOCAINE PATCH REMOVAL MC ONE (22:00)
== END 2023-07-17 22:39 | disposition home or self-care (01) ==
LOC: JER 18:41
DX: S22.32XA Fracture of one rib, left side, initial encounter for closed fracture (principal); J93.9 Pneumothorax, unspecified; R07.9 Chest pain, unspecified; W10.8XXA Fall (on) (from) other stairs and steps, initial encounter
CPT/HCPCS: 70450-TC; 71250-TC; 72125-TC; 73110-TC-LT-FY; 73110-TC-RT-FY; 73130-TC-LT-FY; 73130-TC-RT-FY; 99284-25

== ENCOUNTER 2024-05-04 09:58 | Observation (INO) | payer OTHER ==
[2024-05-04 10:50] LABS: EPI CELLS 2 /uL (0-25.1); HYALINE CASTS 0 /uL (0-3.1); PH,URINE 5.5 (5.0-8.0); URINE APPEARANCE CLEAR; URINE BACTERIA 2 /uL (0-1359); URINE BILIRUBIN NEGATIVE (NEGATIVE); URINE COLOR YELLOW; URINE GLUCOSE (UA) NEGATIVE (NEGATIVE); URINE KETONE NEGATIVE (NEGATIVE); URINE LEUK ESTERASE NEGATIVE (NEGATIVE); URINE NITRITE NEGATIVE (NEGATIVE); URINE PROTEIN NEGATIVE (NEGATIVE); URINE RBC 10 /uL (0-23.9); URINE UROBILINOGEN 0.2 mg/dL (0.2-1.0); URINE WBC 2 /uL (0-25.8)
[2024-05-04] MEDS: SODIUM CHLORIDE 1,000 ML IV STA (11:25)
[2024-05-04 11:37] LABS: HEMATOCRIT 37.6 % (35.4-49); HEMOGLOBIN 12.5 GM/dL (11.7-16.9); MCH 30.7 pg (25.7-33.7); MCHC 33.3 g/dl (32.0-35.9); MEAN CELL VOLUME 92.1 fl (80-96); MEAN PLT VOLUME 8.1 fl (7.5-11.1); PLATELET COUNT 130 10^3/uL (134-434); RBC 4.08 M/mm3 (4.00-5.60); RDW 15.8 % (11.9-15.9)
[2024-05-04 11:49] LABS: INR 0.99 (0.83-1.09); PROTHROMBIN TIME (PATIENT) 11.2 SEC (9.7-13.0); WHITE BLOOD COUNT 178.7 K/mm3 (4.0-10.0)
[2024-05-04 12:02] LABS: CALCIUM 9.6 mg/dL (8.5-10.1)
[2024-05-04 12:03] LABS: ALBUMIN 4.4 g/dl (3.4-5.0); BLOOD UREA NITROGEN 19.8 mg/dL (7-18)
[2024-05-04 12:06] LABS: CREATININE 1.5 mg/dL (0.55-1.3)
[2024-05-04 12:07] LABS: BILIRUBIN,TOTAL 1.2 mg/dL (0.2-1); TOT PROT 6.3 g/dl (6.4-8.2)
[2024-05-04 12:46] LABS: ANISOCYTOSIS 0; HELMET CELLS 0; HOWELL-JOLLY BODIES 0; MACROCYTOSIS 0; OVALOCYTE 0; ROULEAU 0; SICKELED CELLS 0; TARGET CELLS 0; TEAR DROP CELLS 0; TOXIC GRANULATION 0
[2024-05-04 20:04] VITALS: BMI 23.8
[2024-05-04] MEDS: ATORVASTATIN CA 80 MG TABLET (FP) PO SCH (21:35)
[2024-05-04] MEDS: HEPARIN NA (PORCINE) 5,000 UNITS/ML 1ML VIAL SQ SCH (21:35)
[2024-05-04] MEDS: BRIMONIDINE TARTRATE 0.1% OPHTHALMIC 5 ML BOTTLE OU SCH (22:45)
[2024-05-05] MEDS: ONDANSETRON 4 MG/2 ML VIAL IVPUSH PRN (02:06)
[2024-05-05] MEDS: FAMOTIDINE 20 MG TABLET PO SCH (09:08)
[2024-05-05] MEDS: FEBUXOSTAT 40 MG TAB PO SCH (09:09)
[2024-05-05 09:48] LABS: HEMATOCRIT 38.3 % (35.4-49); HEMOGLOBIN 12.8 GM/dL (11.7-16.9); MCH 30.7 pg (25.7-33.7); MCHC 33.3 g/dl (32.0-35.9); MEAN CELL VOLUME 92.2 fl (80-96); MEAN PLT VOLUME 8.1 fl (7.5-11.1); PLATELET COUNT 129 10^3/uL (134-434); RBC 4.15 M/mm3 (4.00-5.60); RDW 15.6 % (11.9-15.9)
[2024-05-05 09:55] LABS: WHITE BLOOD COUNT 180.7 K/mm3 (4.0-10.0)
[2024-05-05 10:09] LABS: POTASSIUM 3.5 mmol/L (3.5-5.1)
[2024-05-05 10:30] LABS: BLOOD UREA NITROGEN 18.8 mg/dL (7-18); CALCIUM 9.5 mg/dL (8.5-10.1); CREATININE 1.5 mg/dL (0.55-1.3)
[2024-05-05 10:42] LABS: ANISOCYTOSIS 0; MACROCYTOSIS 0
[2024-05-05] MEDS: FLUTICASONE PROP 0.05% 16 GM NASAL SPRAY NS SCH (11:55)
[2024-05-05] MEDS: SODIUM CHLORIDE 0.9%/KCL 20 MEQ/1,000 ML INFUS.BAG IV SCH (14:38)
[2024-05-05 18:09] LABS: PH,URINE 5.5 (5.0-8.0); URINE APPEARANCE CLEAR; URINE BILIRUBIN NEGATIVE (NEGATIVE); URINE COLOR YELLOW; URINE GLUCOSE (UA) NEGATIVE (NEGATIVE); URINE KETONE NEGATIVE (NEGATIVE); URINE LEUK ESTERASE NEGATIVE (NEGATIVE); URINE NITRITE NEGATIVE (NEGATIVE); URINE PROTEIN NEGATIVE (NEGATIVE); URINE UROBILINOGEN 0.2 mg/dL (0.2-1.0)
[2024-05-06 05:58] VITALS: BP 124/65; PULSE 65; RESP 18; TEMP 97.9
[2024-05-06 11:04] LABS: HEMATOCRIT 36.5 % (35.4-49); HEMOGLOBIN 12.2 GM/dL (11.7-16.9); MCHC 33.3 g/dl (32.0-35.9); MEAN CELL VOLUME 93.2 fl (80-96); MEAN PLT VOLUME 8.3 fl (7.5-11.1); PLATELET COUNT 127 10^3/uL (134-434); RBC 3.92 M/mm3 (4.00-5.60); RDW 15.7 % (11.9-15.9)
[2024-05-06 11:17] LABS: WHITE BLOOD COUNT 163.6 K/mm3 (4.0-10.0)
[2024-05-06 11:25] LABS: CHLORIDE 106 mmol/L (98-107); POTASSIUM 3.5 mmol/L (3.5-5.1); SODIUM 136 mmol/L (136-145)
[2024-05-06 11:32] LABS: ANION GAP 6 mmol/L (4-13); BLOOD UREA NITROGEN 15.5 mg/dL (7-18); CALCIUM 8.8 mg/dL (8.5-10.1); CO2 24 mmol/L (21-32); MAGNESIUM 2.2 mg/dL (1.8-2.4)
[2024-05-06 11:33] LABS: GLUCOSE,RANDOM 177 mg/dL (74-106)
[2024-05-06 11:34] LABS: SGOT/AST 22 U/L (15-37); SGPT/ALT 37 U/L (13-61)
[2024-05-06 11:35] LABS: BILIRUBIN,TOTAL 0.7 mg/dL (0.2-1); TOT PROT 5.7 g/dl (6.4-8.2)
[2024-05-06 11:36] LABS: ALK PHOS 73 U/L (45-117); CREATININE 1.5 mg/dL (0.55-1.3)
[2024-05-06 11:55] LABS: ANISOCYTOSIS 0; MACROCYTOSIS 0
== END 2024-05-06 12:49 | disposition home or self-care (01) ==
LOC: JER 09:58 → INTOOBSV 16:09 → JERBED 16:09 → UNDOADMOB 16:09 → JERBED 16:48 → J8W 19:23
PROVIDERS: ADMIT Internal Medicine; ATTEND Nurse Practitioner Acute Care
PROC: 07B53ZX Excision of Right Axillary Lymphatic, Percutaneous Approach, Diagnostic (ICD-10-PCS; principal; 2024-05-04)
PROC: 3E033GC Introduction of Other Therapeutic Substance into Peripheral Vein, Percutaneous Approach (ICD-10-PCS; 2024-05-04)
PROC: 3E0337Z Introduction of Electrolytic and Water Balance Substance into Peripheral Vein, Percutaneous Approach (ICD-10-PCS; 2024-05-04)
DX: C91.10 Chronic lymphocytic leukemia of B-cell type not having achieved remission (principal); K57.92 Diverticulitis of intestine, part unspecified, without perforation or abscess without bleeding; R59.1 Generalized enlarged lymph nodes; R10.32 Left lower quadrant pain; N17.9 Acute kidney failure, unspecified; E87.1 Hypo-osmolality and hyponatremia; R79.89 Other specified abnormal findings of blood chemistry; I10 Essential (primary) hypertension; K86.2 Cyst of pancreas
CPT/HCPCS: 10005; 36415; 71045-TC-FY; 74176-TC; 76942-TC; 80048; 80053; 81003; 82436; 82570; 83605; 83690; 83735; 84133; 84300; 85025; 85610; 86140; 86850; 86900; 86901; 87086; 88305-TC; 93005; 93010; 96361; 96374; 99285-25; G0378; J1644

== ENCOUNTER 2024-06-27 08:17 | Day surgery (SDC) | payer OTHER ==
[2024-06-27 08:23] LABS: HEMATOCRIT 34.2 % (35.4-49); HEMOGLOBIN 10.7 GM/dL (11.7-16.9); MCH 29.5 pg (25.7-33.7); MCHC 31.3 g/dl (32.0-35.9); MEAN CELL VOLUME 94.1 fl (80-96); MEAN PLT VOLUME 8.8 fl (7.5-11.1); PLATELET COUNT 156 10^3/uL (134-434); RBC 3.63 M/mm3 (4.00-5.60); RDW 16.3 % (11.9-15.9)
[2024-06-27 08:34] LABS: WHITE BLOOD COUNT 379.9 K/mm3 (4.0-10.0)
[2024-06-27 08:57] LABS: CHLORIDE 99 mmol/L (98-107); POTASSIUM 3.9 mmol/L (3.5-5.1); SODIUM 133 mmol/L (136-145)
[2024-06-27 09:00] LABS: ANION GAP 6 mmol/L (4-13); CO2 28 mmol/L (21-32); MAGNESIUM 2.2 mg/dL (1.8-2.4)
[2024-06-27 09:01] LABS: CALCIUM 9.4 mg/dL (8.5-10.1); GLUCOSE,RANDOM 85 mg/dL (74-106)
[2024-06-27 09:02] LABS: ALBUMIN 4.2 g/dl (3.4-5.0); BLOOD UREA NITROGEN 17.1 mg/dL (7-18)
[2024-06-27 09:03] LABS: CREATININE 1.4 mg/dL (0.55-1.3); URIC ACID 3.4 mg/dL (2.6-7.2)
[2024-06-27 09:04] LABS: SGOT/AST 17 U/L (15-37)
[2024-06-27 09:05] LABS: PHOSPHOROUS 3.8 mg/dL (2.5-4.9)
[2024-06-27 09:06] LABS: LDH 201 U/L (87-246); TOT PROT 6.1 g/dl (6.4-8.2)
[2024-06-27 09:07] LABS: ALK PHOS 70 U/L (45-117); BILIRUBIN,TOTAL 0.8 mg/dL (0.2-1)
[2024-06-27 09:21] LABS: SGPT/ALT 20 U/L (13-61)
[2024-06-27] MEDS: DEXAMETHASONE INJECTION 10 MG in SODIUM CHLORIDE 50 ML IVPB ONE (09:25)
[2024-06-27] MEDS: WATER IVPB ONE ×2 (09:26→10:46)
[2024-06-27] MEDS: DEXTROSE 5% IVPB ONE ×2 (09:26→10:46)
[2024-06-27] MEDS: SODIUM BICARBONATE IVPB ONE ×2 (09:26→10:46)
[2024-06-27 16:59] VITALS: BP 153/57; PULSE 61; RESP 20; TEMP 97.5
== END 2024-06-27 14:20 | disposition home or self-care (01) ==
LOC: JONCNONCHE 08:17 → J7W 08:20 → JONCNONCHE 14:20
PROVIDERS: ATTEND Internal Medicine Hematology & Oncology
PROC: 3E033GC Introduction of Other Therapeutic Substance into Peripheral Vein, Percutaneous Approach (ICD-10-PCS; principal; 2024-06-27)
DX: I12.9 Hypertensive chronic kidney disease with stage 1 through stage 4 chronic kidney disease, or unspecified chronic kidney disease (principal); C91.10 Chronic lymphocytic leukemia of B-cell type not having achieved remission
CPT/HCPCS: 36415; 80053; 83615; 83735; 84100; 84550; 85025; 96365; 96366; J1100

== ENCOUNTER 2024-06-28 07:43 | Day surgery (SDC) | payer OTHER ==
[2024-06-28 08:16] LABS: HEMOGLOBIN 10.3 GM/dL (11.7-16.9); MCH 29.4 pg (25.7-33.7); MCHC 31.1 g/dl (32.0-35.9); MEAN CELL VOLUME 94.3 fl (80-96); MEAN PLT VOLUME 8.4 fl (7.5-11.1); PLATELET COUNT 153 10^3/uL (134-434); RBC 3.49 M/mm3 (4.00-5.60); RDW 16.6 % (11.9-15.9)
[2024-06-28 08:37] LABS: WHITE BLOOD COUNT 354.4 K/mm3 (4.0-10.0)
[2024-06-28 08:41] LABS: CHLORIDE 99 mmol/L (98-107); POTASSIUM 3.5 mmol/L (3.5-5.1); SODIUM 135 mmol/L (136-145)
[2024-06-28 08:43] LABS: ANION GAP 8 mmol/L (4-13); CALCIUM 9.3 mg/dL (8.5-10.1); CO2 27 mmol/L (21-32); MAGNESIUM 2.3 mg/dL (1.8-2.4)
[2024-06-28 08:44] LABS: ALBUMIN 4.1 g/dl (3.4-5.0); BLOOD UREA NITROGEN 20.4 mg/dL (7-18); GLUCOSE,RANDOM 99 mg/dL (74-106)
[2024-06-28 08:46] LABS: CREATININE 1.5 mg/dL (0.55-1.3); SGOT/AST 16 U/L (15-37); SGPT/ALT 21 U/L (13-61)
[2024-06-28 08:47] LABS: PHOSPHOROUS 3.5 mg/dL (2.5-4.9)
[2024-06-28 08:48] LABS: LDH 190 U/L (87-246)
[2024-06-28 08:49] LABS: BILIRUBIN,TOTAL 0.7 mg/dL (0.2-1); URIC ACID 3.9 mg/dL (2.6-7.2)
[2024-06-28 08:50] LABS: ALK PHOS 64 U/L (45-117)
[2024-06-28] MEDS: DEXTROSE 5% IVPB ONE ×2 (09:18→11:59)
[2024-06-28] MEDS: WATER IVPB ONE ×2 (09:18→11:59)
[2024-06-28] MEDS: SODIUM BICARBONATE IVPB ONE ×2 (09:18→11:59)
[2024-06-28] MEDS: DEXAMETHASONE INJECTION 10 MG in SODIUM CHLORIDE 50 ML IVPB ONE (09:19)
[2024-06-28 10:41] LABS: ANISOCYTOSIS 1+; MACROCYTOSIS 0
[2024-06-28 14:29] VITALS: TEMP 98.2
[2024-06-28 14:32] VITALS: BP 138/56; PULSE 74; RESP 18
== END 2024-06-28 14:35 | disposition home or self-care (01) ==
LOC: JONCNONCHE 07:43 → J7W 07:45 → JONCNONCHE 14:35
PROVIDERS: ATTEND Internal Medicine Hematology & Oncology
PROC: 3E033GC Introduction of Other Therapeutic Substance into Peripheral Vein, Percutaneous Approach (ICD-10-PCS; principal; 2024-06-28)
DX: C91.10 Chronic lymphocytic leukemia of B-cell type not having achieved remission (principal)
CPT/HCPCS: 36415; 80053; 83615; 83735; 84100; 84550; 85025; 96365; 96366; 96368; J1100

== ENCOUNTER 2024-07-01 08:49 | Day surgery (SDC) | payer OTHER ==
[2024-07-01 08:29] LABS: HEMATOCRIT 33.9 % (35.4-49); HEMOGLOBIN 10.8 GM/dL (11.7-16.9); MCHC 31.8 g/dl (32.0-35.9); MEAN CELL VOLUME 94.4 fl (80-96); MEAN PLT VOLUME 8.7 fl (7.5-11.1); PLATELET COUNT 180 10^3/uL (134-434); RBC 3.59 M/mm3 (4.00-5.60); RDW 16.2 % (11.9-15.9)
[2024-07-01 08:42] LABS: POTASSIUM 4.1 mmol/L (3.5-5.1); WHITE BLOOD COUNT 391.5 K/mm3 (4.0-10.0)
[2024-07-01 08:44] LABS: ALBUMIN 4.1 g/dl (3.4-5.0); CALCIUM 9.3 mg/dL (8.5-10.1)
[2024-07-01 08:45] LABS: BLOOD UREA NITROGEN 18.4 mg/dL (7-18); MAGNESIUM 2.3 mg/dL (1.8-2.4)
[2024-07-01 08:47] LABS: CREATININE 1.5 mg/dL (0.55-1.3); PHOSPHOROUS 3.7 mg/dL (2.5-4.9); URIC ACID 3.6 mg/dL (2.6-7.2)
[2024-07-01 08:49] LABS: BILIRUBIN,TOTAL 0.8 mg/dL (0.2-1); TOT PROT 6.2 g/dl (6.4-8.2)
[2024-07-01] MEDS: SODIUM CHLORIDE 250 ML IV ONE (10:17)
[2024-07-01] MEDS: DEXAMETHASONE SODIUM PHOSPHATE 10 MG, DIPHENHYDRAMINE 25 MG in SODIUM CHLORIDE 100 ML IVPB ONE (10:18)
[2024-07-01] MEDS: ACETAMINOPHEN 325 MG TABLET (FP) PO ONE (10:24)
[2024-07-01] MEDS: SODIUM CHLORIDE IVPB ONE (11:08)
[2024-07-01] MEDS: RITUXIMAB PVVR IVPB ONE (11:08)
[2024-07-01 16:23] VITALS: BP 142/56; PULSE 76; RESP 18; TEMP 97.6
== END 2024-07-01 15:45 | disposition home or self-care (01) ==
LOC: JONCCHEMO 08:49 → J7W 08:50 → JONCCHEMO 15:45
PROVIDERS: ATTEND Internal Medicine Hematology & Oncology
DX: Z51.11 Encounter for antineoplastic chemotherapy (principal)
CPT/HCPCS: 36415; 80053; 83615; 83735; 84100; 84550; 85025; 96367; 96413; 96415; Q5119